=== PATIENT | female | born 1975 | race Caucasian/White ===

== ENCOUNTER → 2021-07-31 12:47 | Outpatient (CLI) | payer OTHER, SELFPAY ==
--- NOTE | ~2021-07-31 | CT_ITS ---
EXAMINATION: CT abdomen pelvis w con DATE: 07/31/2021 13:10 INDICATION: Right-sided abdominal pain TECHNIQUE: Computed tomography (CT) of the abdomen and pelvis was performed with 100 cc Omnipaque 350 intravenous contrast. The dose-length product was 459.65 mGy-cm. Automated exposure control and iter ative reconstruction technique were employed. COMPARISON: None. FINDINGS: There is dependent atelectasis. Heart size normal. No significant pleural or pericardial ef fusion. No significant vascular abnormality. No lymphadenopathy. Uterus is mildly enlarged and contai ns an IUD. There are multiple liver cysts, largest in the left hepatic lobe measuring 3.7 cm. The spl een, pancreas, adrenal glands and kidneys are unremarkable. Fat-containing umbilical hernia. Nonobstr uctive bowel gas pattern. Enlarged uterus. IMPRESSION: 1. No acute abdominal abnormality. No findings to account for patient's symptoms. Reviewed, dictated and finalized at location B. IMPRESSION: 1. No acute abdominal abnormality. No findings to account for patient's symptom s.
== END ==
PROVIDERS: PCP Physician Assistant; Visit Provider Physician Assistant
DX: R10.9 Unspecified abdominal pain (principal)
CPT/HCPCS: 74177; Q9967

== ENCOUNTER → 2021-08-17 14:16 | Outpatient (CLI) | payer OTHER, SELFPAY ==
--- NOTE | ~2021-08-17 | US_ITS ---
EXAMINATION: US pelvic complete w TV DATE: 08/17/2021 14:47 INDICATION: Hypertrophy of the uterus TECHNIQUE: Multiple transabdominal and endovaginal sonographic images of the pelvis were obtained. COMPARISON: None. FINDINGS: The uterus measures 9.9 x 4.5 x 5.5 cm. The endometrial complex measures 7 mm in thickness. Linear e chogenic and shadowing T-shaped IUD in expected position within the endometrial canal. The right ovar y measures 3.2 x 2.4 x 3.2 cm. And 1.5 cm anechoic cyst/follicle in the right ovary. The left ovary m easures 2.5 x 1.6 x 3.2 cm. Couple subcentimeter hypoechoic likely follicles at the left ovary. There is normal vascular flow in the ovaries. There is no free fluid in the pelvis. IMPRESSION: 1. IUD in expected position within the endometrial canal of the normal uterus. Reviewed, dictated and finalized at location B.
== END ==
PROVIDERS: PCP Physician Assistant; Visit Provider Student in an Organized Health Care Education/Training Program
DX: N85.2 Hypertrophy of uterus (principal); Z97.5 Presence of (intrauterine) contraceptive device
CPT/HCPCS: 76830; 76856

== ENCOUNTER 2023-03-15 07:00 | Outpatient (NON) | payer OTHER, SELFPAY | END 2023-03-15 07:01 | disposition home or self-care (01) | LOC: ANHLAB 03-16 14:22 | PROVIDERS: PCP Physician Assistant; Visit Provider Nurse Practitioner | DX: L30.8 Other specified dermatitis (principal); D48.5 Neoplasm of uncertain behavior of skin | CPT/HCPCS: 88305 ==

== ENCOUNTER 2024-08-17 14:10 | Outpatient (CLI) | payer OTHER, SELFPAY ==
--- NOTE | ~2024-08-17 | MM_ITS ---
EXAMINATION: MM screening rafia BI w alysia HISTORY: Screening TECHNIQUE: Craniocaudal and mediolateral oblique 3-D tomosynthesis images were obtained and synthetic 2-D images were generated. CAD analysis was submitted and interpreted. COMPARISON: Comparison to multiple prior studies sequentially, with oldest reviewed study dated 06/30. BREAST PARENCHYMAL COMPOSITION: Dense: The breasts are extremely dense, which lowers the sensitivity of mammography. FINDINGS: There is no evidence of suspicious mass, calcification, or architectural distortion to sugg est malignancy in either breast. There has been no suspicious interval change. IMPRESSION: 1. No mammographic evidence of malignancy. 2. Recommend routine screening mammography in one year. BI-RADS Category 1: Negative Reviewed, dictated and finalized at location A.
--- OUTSIDE RECORDS SUMMARY | 2024-08-17 14:15 | XMS_ITS | Referral Summary ---
Author Organization [facility] Address [address] [place] [id number] Care Team Providers Care Dialysis Biomed Technician Name Role Phone No, Physician Primary Care Provider [phone] Allergies No known active allergies Medications copper (PARAGARD T 380A INTRAUTERINE) by intrauterine route Active Active Problems Problem Noted Date Diagnosed Date Abnormal findings on diagnostic imaging of woody t 08/07/2018 Immunizations Immunization Administration Dates Next Due Influenza, Split 03/08/2010 Influenza, Trivalent, IM (MDV) 04/17/2012,2008 Social History Tobacco Use Types Packs/Day Years Used Date Smoking Tobacco: Light Smoker Smokeless Tobacco: Never Comments:socially Alcohol Use Standard Drinks/Week Comments Yes 0 (1 standard drink = 0.6 oz pur e alcohol) Comments No Sex and Gender Information Value Date Recorded Sex Assigned at Not on file 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 Gender Identity Female 01/11/2020 8:06 AM CDT Sexual Orientation Not on file Last Filed Vital Signs Vital Sign Reading Time Taken Comments Blood Pressure - - Pulse - - Temperature - - Respiratory Rate - - Oxygen Saturation - - Inhaled Oxygen Concentration - - Weight 66.2 kg (146 lb) 01/14/2020 8:10 AM CDT Height 162.6 cm (5' 4 ) 01/14/2020 8:10 AM CDT Body Mass Index 25.06 01/14/2020 8:10 AM CDT Plan of Treatment Not on file Insurance [facility] CHOICE PLUS [facility] CHOICE PLUS Care Teams Dialysis Biomed Technician Relationship Specialty Start Date End Date No, Physician PCP - General 07/20/18
--- OUTSIDE RECORDS SUMMARY | 2024-08-17 14:15 | XMS_ITS ---
Author Organization [facility] Address [address] [place] [address] Phone Care Team Providers Care Director Geophysical Laboratory Name Role Phone YUMIKO LIGHT, DAVY Jacob Primary Care Provider [phone] PIEDAD ROSA MD Unavailable [phone] Problems Includes: Active, inactive, and resolved Problems All Visits Onset Date Resolved Date Provider Condition S tatus Tobacco Use 04/02/2010 Unknown DAVY CALDERON MD Resolve d Last Documented On 12/02/2010 10:13AM ; [facility] Note: was Closed. Plan of Treatment Findings Encounter Date Declines contraception at th is time. vitamin RX sent. Pt. to call if + hpt. Agreeable to ct/ng for family planning today PREP MANAGER EXAM with [facility]IA [facility] 05/05/2012 Last Documented On 2 9:20AM ; [facility] Ordered Clinical summary pro vided to patient PREP MANAGER EXAM with CYNTHIA KUM[facility] 05/05/2012 Last Documented On 2 9:20AM ; [facility] Ordered follow-up visit 1 ye ar or as needed PREP MANAGER EXAM with CYNTHIA KUMAR [facility] 01/21/2010 Last Documented On 0 10:12AM ; [facility] Instructions to patient Instructions for patient : B reast Self Exam discussed Last Documented On 6 2:56PM ; [facility] Instructions for patient : B reast Self Exam discussed Last Documented On 4 9:31AM ; [facility] Instructions for patient : B reast Self Exam discussed Last Documented On 2 9:06AM ; [facility] Instructions for patient : B reast Self Exam discussed Last Documented On 1 3:21PM ; [facility] Instructions for patient : B reast Self Exam discussed Last Documented On 0 9:51AM ; [facility] Education and Decision Aids were provided during visit for: STD screening desired and or dered (cultures only) Last Documented On 6 3:18PM ; [facility] STD screening offered and de clined Last Documented On 4 9:31AM ; [facility] Patient Education: Daily jaime cium and vitamin D Last Documented On 2 9:06AM ; [facility] Patient Education: weight be aring exercise Last Documented On 2 9:06AM ; [facility] STD screening offered and de clined Last Documented On 1 3:21PM ; [facility] New OB form given to patient SAB precautions reviewed and pnv samples given. Advised H1N1 and seasonal flu vaccine Last Documented On 0 10:57AM ; [facility] Patient Education: Daily jaime cium and vitamin D Last Documented On 0 10:03AM ; [facility] Patient Education: weight be aring exercise Last Documented On 0 10:03AM ; [facility] Smoking cessation advised Last Documented On 0 10:03AM ; [facility] Assessments Includes: Assessments for all patient encounters Findings Encounter Date Contraceptive management 1 MONTH CHECK with DAVY CALDERON MD 09/18/2015 Last Documented On 6 9:07AM ; [facility] Contraceptive management: In sertion of IUD IUD INSERTION with DAVY CALDERON MD 08/19/2015 Last Documented On 6 9:46AM ; [facility] Routine pelvic exam ANNUAL WELL WOMEN EXAM with DAVY CALDERON MD 07/24/2015 Last Documented On 6 5:38PM ; [facility] Routine pelvic exam PREP MANAGER EXAM with DAVY CALDERON MD 11/06/2013 Last Documented On 4 9:40AM ; [facility] NORMAL FEMALE EXAM PREP MANAGER EXAM with CYNTHIA SINCLAIRP-MICHA 05/05/2012 Last Documented On 2 9:20AM ; [facility] Alopecia PROBLEM VISIT with DAVY CALDERON MD 04/10/2012 Last Documented On 2 1:00PM ; [facility] Bloating PROBLEM VISIT with DAVY CALDERON MD 04/10/2012 Last Documented On 2 1:00PM ; [facility] Contraceptive management PROBLEM VISIT with DAVY CALDERON MD 04/10/2012 Last Documented On 2 1:00PM ; [facility] Fatigue PROBLEM VISIT with DAVY CALDERON MD 04/10/2012 Last Documented On 2 1:00PM ; [facility] Contraceptive management PREP MANAGER EXAM with DAVY UNDERWOOD MD 02/02/2011 Last Documented On 1 3:34PM ; [facility] Routine pelvic exam PREP MANAGER EXAM with DAVY CALDERON MD 02/02/2011 Last Documented On 1 3:34PM ; [facility] Contraceptive management RECHECK with DAVY CALDERON MD 12/29/2010 Last Documented On 1 10:35AM ; [facility] Contraceptive management: In sertion of IUD POST VISIT with DAVY CALDERON MD 11/27/2010 Last Documented On 1 3:12PM ; [facility] Normal checkup (6 - 42 wk) RETURN OB EX AM with DAVY CALDERON MD 10/08/2010 Last Documented On 1 10:15AM ; [facility] Normal checkup (6 - 42 wk) RETURN OB EX AM with DAVY CALDERON MD 10/01/2010 Last Documented On 1 10:44AM ; [facility] Normal checkup (6 - 42 wk) [Pat ient Encounter] with DAVY CALDERON MD 09/25/2010 Last Documented On 1 3:43PM ; [facility] Normal checkup (6 - 42 wk) RETURN OB EX AM with DAVY CALDERON MD 09/24/2010 Last Documented On 1 9:26AM ; [facility] Normal checkup (6 - 42 wk) RETURN OB EX AM with DAVY CALDERON MD 09/17/2010 Last Documented On 1 9:38AM ; [facility] Normal checkup (6 - 42 wk) RETU RN OB EXAM with CYNTHIA Gavin [facility] 09/09/2010 Last Documented On 1 9:07AM ; [facility] Normal checkup (6 - 42 wk) RETURN OB EX AM with DAVY CALDERON MD 08/25/2010 Last Documented On 1 1:12PM ; [facility] Normal checkup (6 - 42 wk) RETU RN OB EXAM with CYNTHIA Gavin [facility]- 08/07/2010 Last Documented On 1 10:07AM ; [facility] Normal checkup (6 - 42 wk) RETURN OB EX AM with DAVY CALDERON MD 07/14/2010 Last Documented On 1 10:12AM ; [facility] Normal checkup (6 - 42 wk) RETU RN OB EXAM with CYNTHIA Romaine [facility]- 06/25/2010 Last Documented On 1 8:58AM ; [facility] Normal checkup (6 - 42 wk) RETURN OB EX AM with DAVY CALDERON MD 05/28/2010 Last Documented On 1 9:51AM ; [facility] Normal checkup (6 - 42 wk) RETU RN OB EXAM with CYNTHIA A [facility]- 04/30/2010 Last Documented On 0 9:56AM ; [facility] Normal checkup (6 - 42 wk) NEW OB EXAM with DAVY CALDERON MD 04/02/2010 Last Documented On 0 11:05AM ; [facility] Amenorrhea 8 weeks by lmp wi th edc of 10-16-2010 MISSED MENSES with CYNTHIA Gavin [facility]- 03/04/2010 Last Documented On 0 11:16AM ; [facility] Normal routine history and physical PREP MANAGER EXAM wit h CYNTHIA A [facility]- 01/21/2010 Last Documented On 0 10:12AM ; [facility] Routine pelvic exam PREP MANAGER EXAM with CYNTHIA A [facility]- 01/21/2010 Last Documented On 0 10:12AM ; [facility] Instructions Includes: Instructions for all patient encounters Instructions to patient Instructions for patient : B reast Self Exam discussed Last Documented On 6 2:56PM ; [facility] Instructions for patient : B reast Self Exam discussed Last Documented On 4 9:31AM ; [facility] Instructions for patient : B reast Self Exam discussed Last Documented On 2 9:06AM ; [facility] Instructions for patient : B reast Self Exam discussed Last Documented On 1 3:21PM ; [facility] Instructions for patient : B reast Self Exam discussed Last Documented On 0 9:51AM ; [facility] Education and Decision Aids were provided during visit for: STD screening desired and or dered (cultures only) Last Documented On 6 3:18PM ; [facility] STD screening offered and de clined Last Documented On 4 9:31AM ; [facility] Patient Education: Daily jaime cium and vitamin D Last Documented On 2 9:06AM ; [facility] Patient Education: weight be aring exercise Last Documented On 2 9:06AM ; [facility] STD screening offered and de clined Last Documented On 1 3:21PM ; [facility] New OB form given to patient SAB precautions reviewed and pnv samples given. Advised H1N1 and seasonal flu vaccine Last Documented On 0 10:57AM ; [facility] Patient Education: Daily jaime cium and vitamin D Last Documented On 0 10:03AM ; [facility] Patient Education: weight be aring exercise Last Documented On 0 10:03AM ; [facility] Smoking cessation advised Last Documented On 0 10:03AM ; [facility] Medical Equipment - Implanted Devices Includes: Current and historical Devices No Medical Equipment Recorded Medications Includes: Current and historical Medications Current Medications (continue as prescribed) Paragard Intrauterine Copper Intrauterine device 09/17 Provider: Diagnosis: Last Documented On 09/18/2015 8:43AM By NICHOLE POWELL PRINTED CIRCUIT BOARD ASSEMBLER ; [facility] Past Medications on file Triveen-Duo DHA 29-1-200 & 400 MG OR MISC 05/05/2012 - 09/02/2012 Provider: CYNTHIA ECHOLS Diagnosis: Last Documented On 2 9:20AM By CYNTHIA DWYER ; [facility] Mirena (52 MG) 20 MCG/24HR IU IUD 11/27/2010 - 012 Provider: Diagnosis: Inserted 11-27-10 Last Documented On 05/05/2012 9:09AM By REN CABRERA ; [facility] 19 OR TABS 01/21/2010 - 01/16/2011 Provider: CYNTHIA DWYER Diagnosis: Last Documented On 0 10:04AM By CYNTHIA DWYER ; [facility] Ortho Evra 150-35 MCG/24HR TD PTWK 06/06/2009 - 2009 Provider: Diagnosis: Last Documented On 01/21/2010 9:59AM By REN CABRERA ; [facility] Medications Administered Includes: Administered Medications in patient's chart No Administered Medications Recorded Results Includes: Results from 08/18/2023 through 08/17/2024 No Results Recorded For Specified Dates History of Present Illness History of Present Illness not supported for this document type No History of Present Illness Recorded Social History Description Last Updated Alcohol use: 2 drinks or less per day oc c 09/18/2015 Last Documented On 6 9:07AM ; [facility] Sexually active 09/18/2015 Last Documented On 6 9:07AM ; [facility] Smoking status : Current everyday smoker 09/18/2015 Last Documented On 6 9:07AM ; [facility] In monogamous relationship 07/24/2015 Last Documented On 6 5:38PM ; [facility] Cigarette smoking 1 pack a week 07/24/19 16 Last Documented On 6 5:38PM ; [facility] Social history unchanged 11/06/2013 Last Documented On 4 9:40AM ; [facility] Alcohol use rarely 05/05/2012 Last Documented On 2 9:20AM ; [facility] Not using drugs 05/05/2012 Last Documented On 2 9:20AM ; [facility] Sexually active with 1 partners in the l ast year 05/05/2012 Last Documented On 2 9:20AM ; [facility] Non-smoker 04/10/2012 Last Documented On 2 1:00PM ; [facility] Not sexually active 1 Last Documented On 1 3:12PM ; [facility] Tobacco use 04/02/2010 Last Documented On 0 11:05AM ; [facility] Daily cola consumption was one cans per day 06/06/2009 Last Documented On 0 8:47PM ; [facility] Alcohol 06/06/2009 Last Documented On 0 8:47PM ; [facility] Beer consumption 2 mo 06/06/2009 Last Documented On 0 8:47PM ; [facility] Caffeine use 06/06/2009 Last Documented On 0 8:47PM ; [facility] Currently 06/06/2009 Last Documented On 0 8:47PM ; [facility] Educational level: grade 06/06/2009 Last Documented On 0 8:47PM ; [facility] In grade 13-16 (college) 06/06/2009 Last Documented On 0 8:47PM ; [facility] Marital history 06/06/2009 Last Documented On 0 8:47PM ; [facility] Smoking only on weekends 06/06/2009 Last Documented On 0 8:47PM ; [facility] Procedures and Surgical History Surgical History Last Updated Surgical / procedural history myringotom y 08/19/2015 Last Documented On 6 9:46AM ; [facility] History of surgery 04/02/2010 Last Documented On 0 11:05AM ; [facility] Medical History Includes: Medical History in patient's chart Description Last Updated Contraception: paragard 09/18/2015 Last Documented On 6 9:07AM ; [facility] LMP: 09/10/2015 09/18/2015 Last Documented On 6 9:07AM ; [facility] Aborta 1 09/18/2015 Last Documented On 6 9:07AM ; [facility] 2 09/18/2015 Last Documented On 6 9:07AM ; [facility] Last pap smear date 07/24/2015 09/18/2015 Last Documented On 6 9:07AM ; [facility] Para 1 09/18/2015 Last Documented On 6 9:07AM ; [facility] History of Pap smear done 07/24/2015 04/0 09/2015 Last Documented On 6 9:46AM ; [facility] Result: normal 08/19/2015 Last Documented On 6 9:46AM ; [facility] No recent change in medical history 10/15 Last Documented On 4 9:40AM ; [facility] Vaginal delivery 05/05/2012 Last Documented On 2 9:20AM ; [facility] Baby thriving 11/27/2010 Last Documented On 1 3:12PM ; [facility] Infant is bottle-feeding 11/27/2010 Last Documented On 1 3:12PM ; [facility] No history of cervical dysplasia 010 Last Documented On 0 11:16AM ; [facility] No history of dysfunctional uterine blee ding 03/04/2010 Last Documented On 0 11:16AM ; [facility] No history of human papilloma virus infe ction 03/04/2010 Last Documented On 0 11:16AM ; [facility] No history of Polycystic Ovarian Syndrom e (PCOS) 03/04/2010 Last Documented On 0 11:16AM ; [facility] No history of urinary tract infection Last Documented On 0 11:16AM ; [facility] No history of vaginitis 03/04/2010 Last Documented On 0 11:16AM ; [facility] age 7 myrungotomy, age 21 ulcer 06/06/19 10 Last Documented On 0 8:47PM ; [facility] A breast self-exam was performed 010 Last Documented On 0 8:47PM ; [facility] A Pap smear was performed 06/06/2009 Last Documented On 0 8:47PM ; [facility] Other method: patch 06/06/2009 Last Documented On 0 8:47PM ; [facility] Taking OTC medications IBP PRN 0 Last Documented On 0 8:47PM ; [facility] Family History Includes: Family History in patient's chart Description Last Updated Family history of diabetes mellitus pt m aternal uncle 09/18/2015 Last Documented On 6 9:07AM ; [facility] Family history of malignant female breas t neoplasm pt paternal aunt 09/18/2015 Last Documented On 6 9:07AM ; [facility] Family history of malignant neoplasm of large intestine pt paternal uncle 09/18/2015 Last Documented On 6 9:07AM ; [facility] Family history of malignant neoplasm of the ovary pt paternal aunt 09/18/2015 Last Documented On 6 9:07AM ; [facility] Paternal history of malignant female sushma ast neoplasm paternal aunt 07/24/2015 Last Documented On 6 5:38PM ; [facility] Paternal history of malignant neoplasm o f the ovary aunt on paternal side 07/24/2015 Last Documented On 6 5:38PM ; [facility] Paternal uncle's history of malignant neoplasm of large intestine uncle on paternal side 07/24/2015 Last Documented On 6 5:38PM ; [facility] Family history unchanged 11/06/2013 Last Documented On 4 9:40AM ; [facility] Spouse name: kelly 05/05/2012 Last Documented On 2 9:20AM ; [facility] Family history of hypercholesterolemia d ad 05/05/2012 Last Documented On 2 9:20AM ; [facility] Family history of hypertension dad 05/05 Last Documented On 2 9:20AM ; [facility] No family history of heart disease 05/05 Last Documented On 2 9:20AM ; [facility] No family history of uterine cancer 04/16 Last Documented On 2 9:20AM ; [facility] Family history of Cancer pgm 06/06/2009 Last Documented On 0 8:47PM ; [facility] Family history of Diabetes mgf 0 Last Documented On 0 8:47PM ; [facility] Family medical history of high blood pre ssure pgm 06/06/2009 Last Documented On 0 8:47PM ; [facility] Family medical history of High Cholester ol dad 06/06/2009 Last Documented On 0 8:47PM ; [facility] Review of Systems Review of Systems not supported for this document type No Review of Systems Recorded Mental Status No Mental Status Recorded Functional Status No Functional Status Recorded Physical Exam Physical Exam not supported for this document type No Physical Exam Recorded Allergies Includes: Active, inactive, and resolved Allergies No Known Allergies Insurance Includes: Active Insurance Policies Plan Name Member ID Group # Subscriber Relationship Effect joni Dates 1 - [facility] [id number] JAYCOB MARY Se Clinical Notes Includes: Signed Clinical Notes starting from 06/04/2022 No Clinical Notes Recorded
--- OUTSIDE RECORDS SUMMARY | 2024-08-17 14:15 | XMS_ITS | Clinical Summary ---
Author Organization [facility] Address [address] [place] [address] Phone Care Team Providers Care Film Flat Inspector Name Role Phone YUMIKO LIGHT, DAVY Jacob Primary Care Provider [phone] PIEDAD ROSA MD Unavailable [phone] Reason for Visit and Chief Complaint [Patient Encounter] Problems Includes: Problems addressed during this encounter and other active Problems No Active Problems Plan of Treatment No Plan of Treatment Recorded Assessments Includes: Assessments from this encounter No Assessments Recorded Medical Equipment - Implanted Devices Includes: Current Devices No Medical Equipment Recorded Medications Includes: Medications discussed during this encounter and other current Medications Current Medications (continue as prescribed) Paragard Intrauterine Copper Intrauterine device 09/17 Provider: Diagnosis: Last Documented On 09/18/2015 8:43AM By NICHOLE POWELL CMA ; [facility] Medications Administered Includes: Administered Medications from this encounter No Administered Medications Recorded Results Includes: Results discussed during this encounter No Results Recorded For Specified Dates History of Present Illness Includes: History of Present Illness from this encounter No History of Present Illness Recorded Social History No Social History Recorded - Smoking Status Unknown Medical History Includes: Medical History addressed during this encounter No Medical History Recorded Family History Includes: Family History addressed during this encounter No Family History Recorded Review of Systems Includes: Review of Systems from this encounter No Review of Systems Recorded Mental Status Includes: Mental Status from this encounter No Mental Status Recorded Functional Status Includes: Functional Status from this encounter No Functional Status Recorded Physical Exam Includes: Physical Exam from this encounter No Physical Exam Recorded Allergies Includes: Active Allergies No Known Allergies Encounters Encounter Provider Location Date Check-In Time Check- Out Time Diagnosis [Patient Encounter] DAVY CALDERON MD [facility] MACHINE FEATHEREDGER AND REDUCER 5 1:20PM 11:59PM Insurance Includes: Active Insurance Policies Plan Name Member ID Group # Subscriber Relationship Effect joni Dates 1 - [facility] [id number] JAYCOB jaeger Clinical Notes Includes: Clinical Notes from this encounter No Clinical Notes Recorded
--- OUTSIDE RECORDS SUMMARY | 2024-08-17 14:15 | XMS_ITS | Clinical Summary ---
Author Organization [facility] Address [address] [place] [address] Phone Care Team Providers Care Neon Sign Worker Name Role Phone YUMIKO LIGHT, DAVY Jacob Primary Care Provider [phone] PIEDAD ROSA MD Unavailable [phone] Reason for Visit and Chief Complaint * PHONE CALL Problems Includes: Problems addressed during this encounter [...] 09/18/2015 8:43AM By NICHOLE POWELL CMA ; [facility] Past Medications on file Triveen-Duo DHA 29-1-200 & 400 MG OR MISC 05/05/2012 - 09/02/2012 Provider: CYNTHIA ECHOLS Diagnosis: Last Documented On 2 9:20AM By CYNTHIA KUMAR KINZA ; [facility] 19 OR TABS 01/21/2010 - 01/16/2011 Provider: CYNTHIA DWYER Diagnosis: Last Documented On 0 10:04AM By CYNTHIA KUMAR KINZA ; [facility] Medications Administered Includes: Administered Medications from this [...] Includes: Family History addressed during this encounter Description Last Updated Family history of diabetes m ellitus grandfather and uncles on maternal side 09/18/2015 Last Documented On 6 2:52PM ; [facility] Family history of malignant female breas t neoplasm Paternal aunt 09/18/2015 Last Documented On 6 2:52PM ; [facility] Family history of malignant neoplasm of the large intestine Paternal uncle 09/18/2015 Last Documented On 6 2:52PM ; [facility] Family history of malignant neoplasm of the ovary Paternal aunt 09/18/2015 Last Documented On 6 2:52PM ; [facility] Paternal history of malignant female sushma ast neoplasm paternal aunt 07/24/2015 Last Documented On 6 2:52PM ; [facility] Paternal history of malignant neoplasm o f the ovary aunt on paternal side 07/24/2015 Last Documented On 6 2:52PM ; [facility] Paternal uncle's history of malignant neoplasm of large intestine uncle on paternal side 07/24/2015 Last Documented On 6 2:52PM ; [facility] Family history unchanged 11/06/2013 Last Documented On 6 2:52PM ; [facility] Spouse name: kelly 05/05/2012 Last Documented On 6 2:52PM ; [facility] Family history of hypercholesterolemia d ad 05/05/2012 Last Documented On 6 2:52PM ; [facility] Family history of hypertension dad 05/05 Last Documented On 6 2:52PM ; [facility] No family history of heart disease 05/05 Last Documented On 6 2:52PM ; [facility] No family history of uterine cancer 04/16 Last Documented On 6 2:52PM ; [facility] Family history of Cancer pgm 06/06/2009 Last Documented On 6 2:52PM ; [facility] Family history of Diabetes mgf 0 Last Documented On 6 2:52PM ; [facility] Family medical history of high blood pre ssure pgm 06/06/2009 Last Documented On 6 2:52PM ; [facility] Family medical history of High Cholester ol dad 06/06/2009 Last Documented On 6 2:52PM ; [facility] Review of Systems Includes: Review of Systems [...] Encounters Encounter Provider Location Date Check-In Time Check-Out Time Diagnosis * PHONE CALL DAVY CALDERON MD [facility] EXTENSION SERVICE SPECIALIST 6 2:52PM 11:59PM Insurance Includes: Active Insurance Policies Plan Name Member ID Group # Subscriber Relationship Effect joni Dates 1 - [facility] [id number] JAYCOB MARY Se Clinical Notes Includes: Clinical Notes from this encounter No Clinical Notes Recorded
--- OUTSIDE RECORDS SUMMARY | 2024-08-17 14:15 | XMS_ITS | Clinical Summary ---
Author Organization [facility] Address [address] [place] [id number] Care Team Providers Care Marketing Strategy Manager Name Role Phone No, Physician Primary Care Provider [phone] Allergies No known active allergies Medications copper (PARAGARD T 380A INTRAUTERINE) by intrauterine route Active Active Problems Problem Noted Date Diagnosed Date Abnormal findings on diagnostic imaging of woody jane 08/07/2018 Immunizations Immunization Administration Dates Next Due Influenza, Split 03/08/2010 Influenza, Trivalent, IM (MDV) 04/17/2012,2008 Family History Medical History Relation Name Comments Other Father Alive and well; Colon cancer Father's Brother Breast cancer Father's Sister Arthritis Mother arthritis; Other Mother Alive and well; Melanoma Mother's Sister Breast cancer Paternal Grandmother Relation Name Status Comments Father Alive Father's Brother Father's Sister Mother Alive Mother's Sister Paternal Grandmother Social History Tobacco Use Types Packs/Day Years Used Date Smoking Tobacco: Light Smoker Smokeless Tobacco: Never Comments:socially Alcohol Use Standard Drinks/Week Comments Yes 0 (1 standard drink = 0.6 oz pur e alcohol) Comments No Sex and Gender Information Value Date Recorded Sex Assigned at Not on file Legal 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
--- OUTSIDE RECORDS SUMMARY | 2024-08-17 14:15 | XMS_ITS | Clinical Summary ---
Author Organization [facility] Address [address] [place] [address] Phone Care Team Providers Care Linen Attendant Name Role Phone YUMIKO LIGHT, DAVY Jacob Primary Care Provider [phone] PIEDAD ROSA MD Unavailable [phone] Reason for Visit and Chief Complaint visit for: IUD Insertion - The Chief Complaint is: paragard insertion Problems Includes: Problems addressed during this encounter and other active Problems No Active Problems Plan of Treatment Pending Tests Order Diagnosis Results Due Ordering P byronvider In office procedures - OB IUD Insertion Encounter for insertion of intrauterine contraceptive device 09/02/15 DAVY CALDERON MD Last Documented On 6 9:45AM ; [facility] Assessments Includes: Assessments from this encounter Findings - Contraceptive management: Insertion of IUD - Last Documented On 08/19/2015 9:46AM ; [facility] Medical Equipment - Implanted Devices Includes: Current Devices No Medical Equipment Recorded Medications Includes: Medications discussed during this encounter and other current Medications Current Medications (continue as prescribed) Paragard Intrauterine Copper Intrauterine device 09/17 Provider: Diagnosis: Last Documented On 09/18/2015 8:43AM By NICHOLE POWELL CMA ; [facility] Past Medications on file Triveen-Duo DHA 29-1-200 & 400 MG OR MISC 05/05/2012 - 09/02/2012 Provider: CYNTHIA AZARBC Diagnosis: Last Documented On 2 9:20AM By CYNTHIA KELLYBC ; [facility] 19 OR TABS 01/21/2010 - 01/16/2011 Provider: CYNTHIA DWYER Diagnosis: Last Documented On 0 10:04AM By [facility] ; [facility] Medications Administered Includes: Administered Medications from this encounter No Administered Medications Recorded Vital Signs Includes: Vital Signs from this encounter Vital Name 08/19/2015 09:10A 08/19/2015 09: 07A Blood Pressure Sitting (mmHg) 118/74 Height (in) 64 64 Weight (lb) 140 Body Mass Index (kg/m2) 24.0 Body Surface Area (m2) 1.7 Last Documented: On 08/19/2015 9:11AM ; [facility] On 08/19/2015 9:07AM ; [facility] Results Includes: Results discussed during this encounter No Results Recorded For Specified Dates History of Present Illness Includes: History of Present Illness from this encounter No History of Present Illness Recorded Social History No Social History Recorded - Smoking Status Unknown Procedures and Surgical History Includes: Procedures from this encounter Procedures Code Diagnosis Performing Provider Service L ocation Service Date insertion of intrauterine device (IUD) .Risks versus benefits discussed. Consent signed [id number] Last Documented On 6 9:30AM ; [facility] Sterile speculum inserted Last Documented On 6 9:30AM ; [facility] Cervix easily visualized , cervix swabbe d with Betadine Last Documented On 6 9:30AM ; [facility] Tenaculum applied to anterior cervix. Last Documented On 6 9:30AM ; [facility] Uterus sounded to 8 cm Last Documented On 6 9:45AM ; [facility] ParaGard telesales specialist introduced through cer vix to 6 cm Last Documented On 6 9:45AM ; [facility] ParaGard released and telesales specialist advanced to 7.5 cm Last Documented On 6 9:45AM ; [facility] Loaf Counter removed. Last Documented On 6 9:30AM ; [facility] Tenaculum removed and pressu re applied to tenaculum sites with cotton swabs until hemostatis obtained. along with silver nitrate Last Documented On 6 9:45AM ; [facility] IUD strings trimmed to 3-4 cm. Last Documented On 6 9:30AM ; [facility] Patient tolerated procedure well Last Documented On 6 9:30AM ; [facility] Instructed to use non-hormonal, back-up method of control x 1 month Last Documented On 6 9:30AM ; [facility] Patient verbalizes understanding Last Documented On 6 9:30AM ; [facility] RTO in month for IUD check. Last Documented On 6 9:30AM ; [facility] Encouraged to call office with any IUD c oncerns Last Documented On 6 9:30AM ; [facility] Clinical summary provided to patient Last Documented On 6 9:30AM ; [facility] Surgical History Last Updated Surgical / procedural history myringotom y 08/19/2015 Last Documented On 6 9:46AM ; [facility] Medical History Includes: Medical History addressed during this encounter Description Last Updated LMP: 08/17/2015 08/19/2015 Last Documented On 6 9:46AM ; [facility] Aborta 1 08/19/2015 Last Documented On 6 9:46AM ; [facility] 2 08/19/2015 Last Documented On 6 9:46AM ; [facility] History of Pap smear done 07/24/201509/2015 Last Documented On 6 9:46AM ; [facility] Para 1 08/19/2015 Last Documented On 6 9:46AM ; [facility] Result: normal 08/19/2015 Last Documented On 6 9:46AM ; [facility] Family History Includes: Family History addressed during this encounter Description Last Updated Family history of diabetes m ellitus grandfather and uncles on maternal side 09/18/2015 Last Documented On 6 9:07AM ; [facility] Family history of malignant female breas t neoplasm Paternal aunt 09/18/2015 Last Documented On 6 9:07AM ; [facility] Family history of malignant neoplasm of the large intestine Paternal uncle 09/18/2015 Last Documented On 6 9:07AM ; [facility] Family history of malignant neoplasm of the ovary Paternal aunt 09/18/2015 Last Documented On 6 9:07AM ; [facility] Paternal history of malignant female sushma ast neoplasm paternal aunt 07/24/2015 Last Documented On 6 9:07AM ; [facility] Paternal history of malignant neoplasm o f the ovary aunt on paternal side 07/24/2015 Last Documented On 6 9:07AM ; [facility] Paternal uncle's history of malignant neoplasm of large intestine uncle on paternal side 07/24/2015 Last Documented On 6 9:07AM ; [facility] Family history unchanged 11/06/2013 Last Documented On 6 9:07AM ; [facility] Spouse name: kelly 05/05/2012 Last Documented On 6 9:07AM ; [facility] Family history of hypercholesterolemia d ad 05/05/2012 Last Documented On 6 9:07AM ; [facility] Family history of hypertension dad 05/05 Last Documented On 6 9:07AM ; [facility] No family history of heart disease 05/05 Last Documented On 6 9:07AM ; [facility] No family history of uterine cancer 04/16 Last Documented On 6 9:07AM ; [facility] Family history of Cancer pgm 06/06/2009 Last Documented On 6 9:07AM ; [facility] Family history of Diabetes mgf 0 Last Documented On 6 9:07AM ; [facility] Family medical history of high blood pre ssure pgm 06/06/2009 Last Documented On 6 9:07AM ; [facility] Family medical history of High Cholester ol dad 06/06/2009 Last Documented On 6 9:07AM ; [facility] Review of Systems Includes: Review of Systems from this encounter No Review of Systems Recorded Mental Status Includes: Mental Status from this encounter No Mental Status Recorded Functional Status Includes: Functional Status from this encounter No Functional Status Recorded Physical Exam Includes: Physical Exam from this encounter Allergies Includes: Active Allergies No Known Allergies Encounters Encounter Provider Location Date Check-In Time Check-Out Time Diagnosis IUD INSERTION DAVY CALDERON MD [facility] ROUTER MACHINE OPERATOR 08/19/19 16 8:58AM 9:49AM Contraceptive Management: Insertion of Iud Insurance Includes: Active Insurance Policies Plan Name Member ID Group # Subscriber Relationship Effect joni Dates 1 - [facility] [id number] JAYCOB MARY Se lf Clinical Notes Includes: Clinical Notes from this encounter No Clinical Notes Recorded
--- OUTSIDE RECORDS SUMMARY | 2024-08-17 14:15 | XMS_ITS ---
Care Plan - [facility] Created on: August 17, 2024 JAYCOB MARY : 1975 Sex: Female Author Organization [facility] Address [address] [place] [address] Phone Care Team Providers Care Plow Holder Name Role Phone YUMIKO LIGHT, DAVY Jacob Primary Care Provider [phone] SHELLEY LIGHT, PIEDAD Rosales Unavailable [phone]
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
--- OUTSIDE RECORDS SUMMARY | 2024-08-17 14:15 | XMS_ITS | Clinical Summary ---
Author Organization [facility] Address [address] [place] [address] Phone Care Team Providers Care Valve Inspector Name Role Phone YUMIKO LIGHT, DAVY Jacob Primary Care Provider [phone] PIEDAD ROSA MD Unavailable [phone] Reason for Visit and Chief Complaint The Chief Complaint is: 1 month paragard check Problems Includes: Problems addressed during this encounter and other active Problems No Active Problems Plan of Treatment No Plan of Treatment Recorded Assessments Includes: Assessments from this encounter Findings - Contraceptive management - Last Documented On 09/18/2015 9:07AM ; [facility] Medical Equipment - Implanted Devices Includes: Current Devices No Medical Equipment Recorded Medications Includes: Medications discussed during this encounter and other current Medications Current Medications (continue as prescribed) Paragard Intrauterine Copper Intrauterine device 09/17 Provider: Diagnosis: Last Documented On 09/18/2015 8:43AM By NICHOLE POWELL CMA ; [facility] Past Medications on file Triveen-Duo DHA 29-1-200 & 400 MG OR MISC 05/05/2012 - 09/02/2012 Provider: CYNTHIA ESCOBAR NP-BC Diagnosis: Last Documented On 2 9:20AM By CYNTHIA KUMAR NICKI-BC ; [facility] 19 OR TABS 01/21/2010 - 01/16/2011 Provider: CYNTHIA ROWLEY-BC Diagnosis: Last Documented On 0 10:04AM By CYNTHIA KUMAR NICKI-BC ; [facility] Medications Administered Includes: Administered Medications from this encounter No Administered Medications Recorded Vital Signs Includes: Vital Signs from this encounter Vital Name 09/18/2015 08:44A 09/18/2015 08: 38A Blood Pressure Sitting (mmHg) 118/72 Height (in) 64 64 Weight (lb) 133 Body Mass Index (kg/m2) 22.8 Body Surface Area (m2) 1.6 Last Documented: On 09/18/2015 8:44AM ; [facility] On 09/18/2015 8:38AM ; [facility] Results Includes: Results discussed during this encounter No Results Recorded For Specified Dates History of Present Illness Includes: History of Present Illness from this encounter RICH MARY is a 39 year old female. - No unusual bleeding last period was a little heavier and longer than normal but total of 6 days. - No pelvic pain. - No vaginal discharge. Social History Description Last Updated Alcohol use: 2 drinks or less per day oc c 09/18/2015 Last Documented On 6 9:07AM ; [facility] Sexually active 09/18/2015 Last Documented On 6 9:07AM ; [facility] Smoking status : Current everyday smoker 09/18/2015 Last Documented On 6 9:07AM ; [facility] Procedures and Surgical History Includes: Procedures from this encounter Procedures Code Diagnosis Performing Provider Service L ocation Service Date follow-up visit for annual exam Last Documented On 6 8:57AM ; [facility] Patient reassured IUD in cor rect position and she may rely on it for contraception Last Documented On 6 8:57AM ; [facility] Clinical summary provided to patient Last Documented On 6 8:57AM ; [facility] Surgical History Last Updated Surgical / procedural history myringotom y 08/19/2015 Last Documented On 6 8:38AM ; [facility] History of surgery myringotomy 0 Last Documented On 6 8:38AM ; [facility] Medical History Includes: Medical History addressed during this encounter Description Last Updated Contraception: paragard 09/18/2015 Last Documented On 6 9:07AM ; [facility] LMP: 09/10/2015 09/18/2015 Last Documented On 6 9:07AM ; [facility] Aborta 1 09/18/2015 Last Documented On 6 9:07AM ; [facility] 2 09/18/2015 Last Documented On 6 9:07AM ; [facility] Last pap smear date 07/24/2015 09/18/2015 Last Documented On 6 9:07AM ; [facility] Para 1 09/18/2015 Last Documented On 6 9:07AM ; [facility] Family History Includes: Family History addressed during this encounter Description Last Updated Family history of diabetes mellitus pt m aternal uncle 09/18/2015 Last Documented On 6 9:07AM ; [facility] Family history of malignant female breas t neoplasm pt paternal aunt 09/18/2015 Last Documented On 6 9:07AM ; [facility] Family history of malignant neoplasm of large intestine pt paternal uncle 09/18/2015 Last Documented On 6 9:07AM ; [facility] Family history of malignant neoplasm of the ovary pt paternal aunt 09/18/2015 Last Documented On 6 9:07AM ; [facility] Review of Systems Includes: Review of [...] Location Date Check-In Time Check-Out Time Diagnosis 1 MONTH CHECK DAVY CALDERON MD [facility] LEASE ANALYST 09/18/19 16 8:36AM 9:06AM Contraceptive Management Insurance Includes: Active Insurance Policies Plan Name Member ID Group # Subscriber Relationship Effect joni Dates 1 - [facility] [id number] JAYCOB MARY [facility] Clinical Notes Includes: Clinical Notes from this encounter No Clinical Notes Recorded
== END 2024-08-17 14:11 | disposition home or self-care (01) ==
LOC: CHSIMG 14:14
PROVIDERS: PCP Surgery Plastic and Reconstructive Surgery; Visit Provider Surgery Plastic and Reconstructive Surgery
DX: Z12.31 Encounter for screening mammogram for malignant neoplasm of breast (principal)
CPT/HCPCS: 77063; 77067

== ENCOUNTER 2024-08-22 11:55 | Emergency (ER) | payer OTHER, SELFPAY ==
--- NOTE | ~2024-08-22 | XR_ITS ---
EXAMINATION: XR abdomen/kub 1V DATE: 08/22/2024 12:33 INDICATION: Right-sided abdominal and mid back pain. TECHNIQUE: A supine view of the abdomen on 2 radiographs was obtained. COMPARISON: CT dated 07/31/2021 FINDINGS: Moderate the large amount of stool in the ascending and transverse colon. No dilated loops of gas-sara led bowel to suggest obstruction. 6 mm calcification projecting over the right upper quadrant which c ould represent a gallstone or right renal stone. No other suspicious calcifications in the abdomen or pelvis. T-shaped IUD projecting over the central pelvis. Lung bases are clear. Heart size normal. Mi ld lumbar dextrocurvature. IMPRESSION: 1. 6 mm calcific density projecting over the right upper quadrant potentially a gallstone or renal st one. 2. Normal bowel gas pattern with moderate to large amount of proximal colonic stool which could be se en with constipation. Reviewed, dictated and finalized at location B. IMPRESSION: 1. 6 mm calcific density projecting over the right upper quadrant potentially a gallstone or renal stone. 2. Normal bowel gas pattern with moderate to large amount of proximal colonic s tool which could be seen with constipation.
[2024-08-22 12:08] VITALS: BP 119/77; PULSE 115; RESP 18; TEMP 36.6; O2SAT 100
--- NOTE | 2024-08-22 12:12 | ED_ITS ---
HPI - Abdominal Pain General Chief Complaint: Abdominal Pain Stated Complaint: right side pain Time Seen by Provider: 08/22/24 12:12 Source: patient Mode of arrival: ambulatory Limitations: no limitations History of Present Illness HPI narrative: 48 yo F presents with pain to her R side for about 3 wks. Pain is intermittent, at times worse. Today pain radiating to R mid/upper back. Having normal BMs. No urinary symptoms. Reports mild nausea and fatigue today. No vomiting. Nothing makes pain better or worse. Has been taking tirzepatide since december. Was concerned causing gallbladder issues. All systems reviewed and negative except as noted above. Related Data Home Medications ?Medication ?Instructions ?Recorded ?Confirmed ?Last Taken ?Type copper 380 square mm intrauterine 1 device intrauterine ONCE 02/06/21 02/06/21 Unknown History device (ParaGard T 380A) Allergies Allergy/AdvReac Type Severity Reaction Status Date / Time No Known Allergies Allergy Verified 08/22/24 12:11 Review of Systems Review of Systems: CONSTITUTIONAL: Denies fever, chills, or sweats. EYES: Denies visual changes, redness, or discharge. ENT: Denies rhinorrhea, congestion, sore throat, or otalgia. CARDIOVASCULAR: Denies chest pain, palpitations, or edema. RESPIRATORY: Denies cough or dyspnea. GASTROINTESTINAL: Reports right-sided abdominal pain radiating to right mid back with nausea. Denies vomiting, or diarrhea. GENITOURINARY: Denies dysuria or hematuria. SKIN: Denies rash or itching. MUSCULOSKELETAL: Denies back pain, joint pain, or myalgia. NEUROLOGIC: Denies headache, numbness, or weakness. PSYCHIATRIC: Denies anxiety or depression. All other systems reviewed are negative, except as documented in HPI. [facility] Past Medical History Medical History History of 1 History of vaginal delivery x 1 Surgical History Surgical History No significant past surgical history Family History Family History Father Hypertension Cerebrovascular accident Social History Social History Smoking status: Current every day smoker Tobacco type: cigarettes Alcohol intake: current Substance use: never Comments At time of signature, agree with nursing past medical, surgical, social and family history. There is no relevant family history pertinent to the presenting complaint. Exam Narrative: GENERAL: This is a well-nourished, well-developed patient, in no apparent distress. HEAD: normocephalic, atraumatic. EYES: PERRL. Sclera clear/white. Vision is grossly intact. EARS: External ears normal NOSE: External nose normal NECK: Neck supple, non-tender without lymphadenopathy, masses or thyromegaly. CARDIOVASCULAR: Regular rate and rhythm without murmurs, gallops, or rubs. RESPIRATORY: Clear to auscultation. Breath sounds equal bilaterally. No wheezes, rales, or rhonchi. GASTROINTESTINAL: Abdomen soft, non-tender, nondistended. Bowel sounds are active. No hepato-splenomegaly, or palpable masses. No guarding. SKIN: warm, Dry, intact with no suspicious lesions or rash, good texture and turgor. NEURO: awake, alert, and oriented to person, place and time. There were no obvious focal neurologic abnormalities. EXTREMITIES: No joint tenderness, effusion, or edema noted. No calf tenderness. Negative Homans sign bilaterally. BACK: Nontender without deformity. No CVA tenderness. Course Course Level of Care: Express Care Visit Vital Signs Vital signs: Vital Signs Temperature 36.6 C 08/22/24 12:08 Pulse Rate 115 H 08/22/24 12:08 Respiratory Rate 18 08/22/24 12:08 Blood Pressure 119/77 08/22/24 12:08 Pulse Oximetry 100 08/22/24 12:08 Oxygen Delivery Room Air 08/22/24 12:08 Temperature 36.6 C 08/22/24 12:08 Pulse Rate 115 H 08/22/24 12:08 Respiratory Rate 18 08/22/24 12:08 Blood Pressure 119/77 08/22/24 12:08 Pulse Oximetry 100 08/22/24 12:08 Oxygen Delivery Room Air 08/22/24 12:08 reviewed MDM - Abdominal Pain MDM Narrative Medical decision making narrative: KUB showing moderate to large stool. Recommend miralax and stool softener. density to RUQ concerning for gallstone or renal stone. No ABD tenderness, no CVA tenderness. Trace blood to urinalysis. offered to transfer pt to ER for CT scan ABD or recommmend follow up with PCP for outpatient CT scan. pt in no distress at this time. would prefer to follow up with PCP at this time Will go to ER for any worsening of symptoms. urinalysis 2+ketones. pt did mention not drinking a lot of water. Recommend she increase water intake, will also help with constipation. Please be advised this is a medical document. It is intended for lrvi-rx-siqi communication. It is written in medical language and may contain unfamiliar abbreviations or verbiage. Medical documents are intended to carry relevant information, facts as evident, and the clinical opinion of the practitioner at the time of the encounter. This report may have been done utilizing a voice recognition system. Attempts have been made to correct errors. However, there may be uncorrected grammatical, spelling, and recognition errors present. The file time of this note does not necessarily represent the time of service. Lab Data Labs: Lab Results 08/22/24 Range/Units 13:11 POC Urine Color Yellow POC Urine Clarity Clear POC Urine pH 5.5 POC Ur Specif [place] 1.015 POC Urine Protein Negative (Negative) POC Ur Glucose (UA) Negative (Negative) POC Urine Ketones 2+ (Negative) POC Urine Blood Trace (Negative) POC Urine Nitrite Negative (Negative) POC Urine Bilirubin Negative (Negative) POC Urine Urobilinogen 0.2 POC U Leukocyte Esteras Negative (Negative) Imaging Data Radiologist's impression: ITS Impressions Abdomen X-Ray 08/22/24 12:47 IMPRESSION: 1. 6 mm calcific density projecting over the right upper quadrant potentially a gallstone or renal stone. 2. Normal bowel gas pattern with moderate to large amount of proximal colonic stool which could be seen with constipation. Discharge Plan Discharge Clinical Impression: Constipation Patient Disposition: Home Condition: Stable Instructions: Constipation (ED) Additional Instructions: The x-ray of your abdomen shows moderate to large amount of stool. There is a calcified density to your right upper quadrant concerning for a gallstone or kidney stone. Less likely a kidney stone based off your symptoms. Follow up with a primary care physician for an outpatient CT scan. If you have severe abdominal pain or vomiting go to the ER. To treat constipation drink 1 capful of Miralax once a day for the next 2 to 3 days. Take over the counter stool softeners as directed on packaging. Drink at least 64 ounce of water a day. Patient Language: Citizen Of [place] Prescriptions: No Action ParaGard T 380A 380 square mm intrauterine device 1 device intrauterine ONCE Rx Instructions: as a single dose Follow-up/Referrals: PHYSICIAN,C 13 CATAPULT OPERATOR [Primary Care Provider] - Derrek Moffett MD [Physician] - (establish care with a primary care physician) Time of Disposition: 13:21
[2024-08-22 13:13] LABS: EDUAAPPEAR Clear; EDUABILI Negative (Negative); EDUABLOOD Trace (Negative); EDUACOLOR1 Yellow; EDUAGLUCOSE Negative (Negative); EDUAKETONE 2+ (Negative); EDUALEUKO Negative (Negative); EDUANITRATE Negative (Negative); EDUAPH 5.5; EDUAPROTEIN Negative (Negative); EDUASPGRAVITY 1.015; EDUAUROBILI 0.2
--- OUTSIDE RECORDS SUMMARY | 2024-08-22 13:26 | XMS_ITS | Clinical Summary ---
Author Organization [facility] Address [address] [place] [address] Phone Care Team Providers Care Laundry Operator Wash Room Name Role Phone YUMIKO LIGHT, DAVY Jacob Primary Care Provider [phone] PIEDAD ROSA MD Unavailable [phone] Reason for Visit and Chief [...] 09/18/2015 8:43AM By NICHOLE POWELL CMA ; [facility] Past Medications on file Triveen-Duo DHA 29-1-200 & 400 MG OR MISC 05/05/2012 - 09/02/2012 Provider: CYNTHIA ECHOLS Diagnosis: Last Documented On 2 9:20AM By CYNTHIA KUMAR KINZA ; [facility] 19 OR TABS 01/21/2010 - 01/16/2011 Provider: CYNTHIA DWYER Diagnosis: Last Documented On 0 10:04AM By CYNTHIA KUMAR KINZA ; [facility] Medications Administered Includes: Administered [...] 09/18/2015 Last Documented On 6 2:52PM ; [facility] Family history of malignant female breas t neoplasm Paternal aunt 09/18/2015 Last Documented On 6 2:52PM ; [facility] Family history of malignant neoplasm of the large intestine Paternal uncle 09/18/2015 Last Documented On 6 2:52PM ; [facility] Family history of malignant neoplasm of the ovary Paternal aunt 09/18/2015 Last Documented On 6 2:52PM ; [facility] Paternal history of malignant female sushma ast neoplasm paternal aunt 07/24/2015 Last Documented On 6 2:52PM ; [facility] Paternal history of malignant neoplasm o f the ovary aunt on paternal side 07/24/2015 Last Documented On 6 2:52PM ; [facility] Paternal uncle's history of malignant neoplasm of large intestine uncle on paternal side 07/24/2015 Last Documented On 6 2:52PM ; [facility] Family history unchanged 11/06/2013 Last Documented On 6 2:52PM ; [facility] Spouse name: kelly 05/05/2012 Last Documented On 6 2:52PM ; [facility] Family history of hypercholesterolemia d ad 05/05/2012 Last Documented On 6 2:52PM ; [facility] Family history of hypertension dad 05/05 Last Documented On 6 2:52PM ; [facility] No family history of heart disease 05/05 Last Documented On 6 2:52PM ; [facility] No family history of uterine cancer 04/16 Last Documented On 6 2:52PM ; [facility] Family history of Cancer pgm 06/06/2009 Last Documented On 6 2:52PM ; [facility] Family history of Diabetes mgf 0 Last Documented On 6 2:52PM ; [facility] Family medical history of high blood pre ssure pgm 06/06/2009 Last Documented On 6 2:52PM ; [facility] Family medical history of High Cholester ol dad 06/06/2009 Last Documented On 6 2:52PM ; [facility] Review of Systems Includes: Review of Systems [...] Diagnosis * PHONE CALL DAVY CALDERON MD [facility] LEARNING SUPPORT TEACHER 6 2:52PM 11:59PM Insurance Includes: Active Insurance Policies Plan Name Member ID Group # Subscriber Relationship Effect joni Dates 1 - [facility] [id number] JAYCOB MARY Se Clinical Notes Includes: Clinical Notes from this encounter No Clinical Notes Recorded
--- OUTSIDE RECORDS SUMMARY | 2024-08-22 13:27 | XMS_ITS | Clinical Summary ---
Author Organization [facility] Address [address] [place] [address] Phone Care Team Providers Care Clinical Haematologist Name Role Phone YUMIKO LIGTH, DAVY Jacob Primary Care Provider [phone] PIEDAD ROSA MD Unavailable [phone] Reason for Visit and Chief [...] 09/18/2015 8:43AM By NICHOLE POWELL CMA ; [facility] Medications Administered Includes: Administered Medications from [...] Time Diagnosis [Patient Encounter] DAVY CALDERON MD [facility] ICE GUARD TESTER 5 1:20PM 11:59PM Insurance Includes: Active Insurance Policies Plan Name Member ID Group # Subscriber Relationship Effect joni Dates 1 - [facility] [id number] JAYCOB jaeger Clinical Notes Includes: Clinical Notes from this encounter No Clinical Notes Recorded
--- OUTSIDE RECORDS SUMMARY | 2024-08-22 13:27 | XMS_ITS | Clinical Summary ---
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
--- OUTSIDE RECORDS SUMMARY | 2024-08-22 13:27 | XMS_ITS ---
Author Organization [facility] Address [address] [place] [address] Phone Care Team Providers Care Client Services Administrator Name Role Phone YUMIKO LIGHT, DAVY Jacob Primary Care Provider [phone] PIEDAD ROSA MD Unavailable [phone] Problems Includes: Active, inactive, and resolved Problems All Visits Onset Date Resolved Date Provider Condition S tatus Tobacco Use 04/02/2010 Unknown DAVY CALDERON MD Resolve d Last Documented On 12/02/2010 10:13AM ; [facility] Note: was Closed. Plan of Treatment Findings Encounter Date Declines contraception at th is time. vitamin RX sent. Pt. to call if + hpt. Agreeable to ct/ng for family planning today THERMAL CUTTER HAND EXAM with CYNTHIA KUMAR [facility] 05/05/2012 Last Documented On 2 9:20AM ; [facility] Ordered Clinical summary pro vided to patient THERMAL CUTTER HAND EXAM with CYNTHIA KUMAR [facility] 05/05/2012 Last Documented On 2 9:20AM ; [facility] Ordered follow-up visit 1 ye ar or as needed THERMAL CUTTER HAND EXAM with CYNTHIA KUMAR [facility] 01/21/2010 Last Documented On 0 10:12AM ; [facility] Instructions to patient Instructions for patient : B reast Self Exam discussed Last Documented On 6 2:56PM ; [facility] Instructions for patient : B reast Self Exam discussed Last Documented On 4 9:31AM ; [facility] Instructions for patient : B reast Self Exam discussed Last Documented On 2 9:06AM ; [facility] Instructions for patient : B reast Self Exam discussed Last Documented On 1 3:21PM ; [facility] Instructions for patient : B reast Self Exam discussed Last Documented On 0 9:51AM ; [facility] Education and Decision Aids were provided during visit for: STD screening desired and or dered (cultures only) Last Documented On 6 3:18PM ; [facility] STD screening offered and de clined Last Documented On 4 9:31AM ; [facility] Patient Education: Daily jaime cium and vitamin D Last Documented On 2 9:06AM ; [facility] Patient Education: weight be aring exercise Last Documented On 2 9:06AM ; [facility] STD screening offered and de clined Last Documented On 1 3:21PM ; [facility] New OB form given to patient SAB precautions reviewed and pnv samples given. Advised H1N1 and seasonal flu vaccine Last Documented On 0 10:57AM ; [facility] Patient Education: Daily jaime cium and vitamin D Last Documented On 0 10:03AM ; [facility] Patient Education: weight be aring exercise Last Documented On 0 10:03AM ; [facility] Smoking cessation advised Last Documented On 0 10:03AM ; [facility] Assessments Includes: Assessments for all patient encounters Findings Encounter Date Contraceptive management 1 MONTH CHECK with DAVY CALDERON MD 09/18/2015 Last Documented On 6 9:07AM ; [facility] Contraceptive management: In sertion of IUD IUD INSERTION with DAVY CALDERON MD 08/19/2015 Last Documented On 6 9:46AM ; [facility] Routine pelvic exam ANNUAL WELL WOMEN EXAM with DAVY CALDERON MD 07/24/2015 Last Documented On 6 5:38PM ; [facility] Routine pelvic exam THERMAL CUTTER HAND EXAM with DAVY CALDERON MD 11/06/2013 Last Documented On 4 9:40AM ; [facility] NORMAL FEMALE EXAM THERMAL CUTTER HAND EXAM with CYNTHIA SINCLAIRP-MICHA 05/05/2012 Last Documented On 2 9:20AM ; [facility] Alopecia PROBLEM VISIT with DAVY CALDERON MD 04/10/2012 Last Documented On 2 1:00PM ; [facility] Bloating PROBLEM VISIT with DAVY CALDERON MD 04/10/2012 Last Documented On 2 1:00PM ; [facility] Contraceptive management PROBLEM VISIT with DAVY CALDERON MD 04/10/2012 Last Documented On 2 1:00PM ; [facility] Fatigue PROBLEM VISIT with DAVY CALDERON MD 04/10/2012 Last Documented On 2 1:00PM ; [facility] Contraceptive management THERMAL CUTTER HAND EXAM with DAVY UNDERWOOD MD 02/02/2011 Last Documented On 1 3:34PM ; [facility] Routine pelvic exam THERMAL CUTTER HAND EXAM with DAVY CALDERON MD 02/02/2011 Last Documented On 1 3:34PM ; [facility] Contraceptive management RECHECK with DAVY CALDERON MD 12/29/2010 Last Documented On 1 10:35AM ; [facility] Contraceptive management: In sertion of IUD POST VISIT with DAVY CALDERON MD 11/27/2010 Last Documented On 1 3:12PM ; [facility] Normal checkup (6 - 42 wk) RETURN OB EX AM with DAVY CALDERON MD 10/08/2010 Last Documented On 1 10:15AM ; [facility] Normal checkup (6 - 42 wk) RETURN OB EX AM with DAVY CALDERON MD 10/01/2010 Last Documented On 1 10:44AM ; [facility] Normal checkup (6 - 42 wk) [Pat ient Encounter] with DAVY CALDERON MD 09/25/2010 Last Documented On 1 3:43PM ; [facility] Normal checkup (6 - 42 wk) RETURN OB EX AM with DAVY CALDERON MD 09/24/2010 Last Documented On 1 9:26AM ; [facility] Normal checkup (6 - 42 wk) RETURN OB EX AM with DAVY CALDERON MD 09/17/2010 Last Documented On 1 9:38AM ; [facility] Normal checkup (6 - 42 wk) RETU RN OB EXAM with CYNTHIA Gavin [facility]- 09/09/2010 Last Documented On 1 9:07AM ; [facility] Normal checkup (6 - 42 wk) RETURN OB EX AM with DAVY CALDERON MD 08/25/2010 Last Documented On 1 1:12PM ; [facility] Normal checkup (6 - 42 wk) RETU RN OB EXAM with CYNTHIA Gavin [facility]- 08/07/2010 Last Documented On 1 10:07AM ; [facility] Normal checkup (6 - 42 wk) RETURN OB EX AM with DAVY CALDERON MD 07/14/2010 Last Documented On 1 10:12AM ; [facility] Normal checkup (6 - 42 wk) RETU RN OB EXAM with CYNTHIA Romaine [facility]- 06/25/2010 Last Documented On 1 8:58AM ; [facility] Normal checkup (6 - 42 wk) RETURN OB EX AM with DAVY CALDERON MD 05/28/2010 Last Documented On 1 9:51AM ; [facility] Normal checkup (6 - 42 wk) RETU RN OB EXAM with CYNTHIA A [facility]- 04/30/2010 Last Documented On 0 9:56AM ; [facility] Normal checkup (6 - 42 wk) NEW OB EXAM with DAVY CALDERON MD 04/02/2010 Last Documented On 0 11:05AM ; [facility] Amenorrhea 8 weeks by lmp wi th edc of 10-16-2010 MISSED MENSES with CYNTHIA Gavin [facility]- 03/04/2010 Last Documented On 0 11:16AM ; [facility] Normal routine history and physical THERMAL CUTTER HAND EXAM wit h CYNTHIA A [facility]- 01/21/2010 Last Documented On 0 10:12AM ; [facility] Routine pelvic exam THERMAL CUTTER HAND EXAM with CYNTHIA A [facility]- 01/21/2010 Last Documented On 0 10:12AM ; [facility] Instructions Includes: Instructions for all patient encounters Instructions to patient Instructions for patient : B reast Self Exam discussed Last Documented On 6 2:56PM ; [facility] Instructions for patient : B reast Self Exam discussed Last Documented On 4 9:31AM ; [facility] Instructions for patient : B reast Self Exam discussed Last Documented On 2 9:06AM ; [facility] Instructions for patient : B reast Self Exam discussed Last Documented On 1 3:21PM ; [facility] Instructions for patient : B reast Self Exam discussed Last Documented On 0 9:51AM ; [facility] Education and Decision Aids were provided during visit for: STD screening desired and or dered (cultures only) Last Documented On 6 3:18PM ; [facility] STD screening offered and de clined Last Documented On 4 9:31AM ; [facility] Patient Education: Daily jaime cium and vitamin D Last Documented On 2 9:06AM ; [facility] Patient Education: weight be aring exercise Last Documented On 2 9:06AM ; [facility] STD screening offered and de clined Last Documented On 1 3:21PM ; [facility] New OB form given to patient SAB precautions reviewed and pnv samples given. Advised H1N1 and seasonal flu vaccine Last Documented On 0 10:57AM ; [facility] Patient Education: Daily jaime cium and vitamin D Last Documented On 0 10:03AM ; [facility] Patient Education: weight be aring exercise Last Documented On 0 10:03AM ; [facility] Smoking cessation advised Last Documented On 0 10:03AM ; [facility] Medical Equipment - Implanted Devices Includes: Current and historical Devices No Medical Equipment Recorded Medications Includes: Current and historical Medications Current Medications (continue as prescribed) Paragard Intrauterine Copper Intrauterine device 09/17 Provider: Diagnosis: Last Documented On 09/18/2015 8:43AM By NICHOLE POWELL SPECIAL NEEDS NANNY ; [facility] Past Medications on file Triveen-Duo DHA 29-1-200 & 400 MG OR MISC 05/05/2012 - 09/02/2012 Provider: CYNTHIA ECHOLS Diagnosis: Last Documented On 2 9:20AM By CYNTHIA DWYER ; [facility] Mirena (52 MG) 20 MCG/24HR IU IUD 11/27/2010 - 012 Provider: Diagnosis: Inserted 11-27-10 Last Documented On 05/05/2012 9:09AM By REN CABRERA ; [facility] 19 OR TABS 01/21/2010 - 01/16/2011 Provider: CYNTHIA DWYER Diagnosis: Last Documented On 0 10:04AM By CYNTHIA DWYER ; [facility] Ortho Evra 150-35 MCG/24HR TD PTWK 06/06/2009 - 2009 Provider: Diagnosis: Last Documented On 01/21/2010 9:59AM By REN CABRERA ; [facility] Medications Administered Includes: Administered Medications in patient's chart No Administered Medications Recorded Results Includes: Results from 08/23/2023 through 08/22/2024 No Results Recorded For Specified Dates History of Present Illness History of Present Illness not supported for this document type No History of Present Illness Recorded Social History Description Last Updated Alcohol use: 2 drinks or less per day oc c 09/18/2015 Last Documented On 6 9:07AM ; [facility] Sexually active 09/18/2015 Last Documented On 6 9:07AM ; [facility] Smoking status : Current everyday smoker 09/18/2015 Last Documented On 6 9:07AM ; [facility] In monogamous relationship 07/24/2015 Last Documented On 6 5:38PM ; [facility] Cigarette smoking 1 pack a week 07/24/19 16 Last Documented On 6 5:38PM ; [facility] Social history unchanged 11/06/2013 Last Documented On 4 9:40AM ; [facility] Alcohol use rarely 05/05/2012 Last Documented On 2 9:20AM ; [facility] Not using drugs 05/05/2012 Last Documented On 2 9:20AM ; [facility] Sexually active with 1 partners in the l ast year 05/05/2012 Last Documented On 2 9:20AM ; [facility] Non-smoker 04/10/2012 Last Documented On 2 1:00PM ; [facility] Not sexually active 1 Last Documented On 1 3:12PM ; [facility] Tobacco use 04/02/2010 Last Documented On 0 11:05AM ; [facility] Daily cola consumption was one cans per day 06/06/2009 Last Documented On 0 8:47PM ; [facility] Alcohol 06/06/2009 Last Documented On 0 8:47PM ; [facility] Beer consumption 2 mo 06/06/2009 Last Documented On 0 8:47PM ; [facility] Caffeine use 06/06/2009 Last Documented On 0 8:47PM ; [facility] Currently 06/06/2009 Last Documented On 0 8:47PM ; [facility] Educational level: grade 06/06/2009 Last Documented On 0 8:47PM ; [facility] In grade 13-16 (college) 06/06/2009 Last Documented On 0 8:47PM ; [facility] Marital history 06/06/2009 Last Documented On 0 8:47PM ; [facility] Smoking only on weekends 06/06/2009 Last Documented On 0 8:47PM ; [facility] Procedures and Surgical History Surgical History Last Updated Surgical / procedural history myringotom y 08/19/2015 Last Documented On 6 9:46AM ; [facility] History of surgery 04/02/2010 Last Documented On 0 11:05AM ; [facility] Medical History Includes: Medical History in patient's chart Description Last Updated Contraception: paragard 09/18/2015 Last Documented On 6 9:07AM ; [facility] LMP: 09/10/2015 09/18/2015 Last Documented On 6 9:07AM ; [facility] Aborta 1 09/18/2015 Last Documented On 6 9:07AM ; [facility] 2 09/18/2015 Last Documented On 6 9:07AM ; [facility] Last pap smear date 07/24/2015 09/18/2015 Last Documented On 6 9:07AM ; [facility] Para 1 09/18/2015 Last Documented On 6 9:07AM ; [facility] History of Pap smear done 07/24/2015 04/0 09/2015 Last Documented On 6 9:46AM ; [facility] Result: normal 08/19/2015 Last Documented On 6 9:46AM ; [facility] No recent change in medical history 10/15 Last Documented On 4 9:40AM ; [facility] Vaginal delivery 05/05/2012 Last Documented On 2 9:20AM ; [facility] Baby thriving 11/27/2010 Last Documented On 1 3:12PM ; [facility] Infant is bottle-feeding 11/27/2010 Last Documented On 1 3:12PM ; [facility] No history of cervical dysplasia 010 Last Documented On 0 11:16AM ; [facility] No history of dysfunctional uterine blee ding 03/04/2010 Last Documented On 0 11:16AM ; [facility] No history of human papilloma virus infe ction 03/04/2010 Last Documented On 0 11:16AM ; [facility] No history of Polycystic Ovarian Syndrom e (PCOS) 03/04/2010 Last Documented On 0 11:16AM ; [facility] No history of urinary tract infection Last Documented On 0 11:16AM ; [facility] No history of vaginitis 03/04/2010 Last Documented On 0 11:16AM ; [facility] age 7 myrungotomy, age 21 ulcer 06/06/19 10 Last Documented On 0 8:47PM ; [facility] A breast self-exam was performed 010 Last Documented On 0 8:47PM ; [facility] A Pap smear was performed 06/06/2009 Last Documented On 0 8:47PM ; [facility] Other method: patch 06/06/2009 Last Documented On 0 8:47PM ; [facility] Taking OTC medications IBP PRN 0 Last Documented On 0 8:47PM ; [facility] Family History Includes: Family History in patient's chart Description Last Updated Family history of diabetes mellitus pt m aternal uncle 09/18/2015 Last Documented On 6 9:07AM ; [facility] Family history of malignant female breas t neoplasm pt paternal aunt 09/18/2015 Last Documented On 6 9:07AM ; [facility] Family history of malignant neoplasm of large intestine pt paternal uncle 09/18/2015 Last Documented On 6 9:07AM ; [facility] Family history of malignant neoplasm of the ovary pt paternal aunt 09/18/2015 Last Documented On 6 9:07AM ; [facility] Paternal history of malignant female sushma ast neoplasm paternal aunt 07/24/2015 Last Documented On 6 5:38PM ; [facility] Paternal history of malignant neoplasm o f the ovary aunt on paternal side 07/24/2015 Last Documented On 6 5:38PM ; [facility] Paternal uncle's history of malignant neoplasm of large intestine uncle on paternal side 07/24/2015 Last Documented On 6 5:38PM ; [facility] Family history unchanged 11/06/2013 Last Documented On 4 9:40AM ; [facility] Spouse name: kelly 05/05/2012 Last Documented On 2 9:20AM ; [facility] Family history of hypercholesterolemia d ad 05/05/2012 Last Documented On 2 9:20AM ; [facility] Family history of hypertension dad 05/05 Last Documented On 2 9:20AM ; [facility] No family history of heart disease 05/05 Last Documented On 2 9:20AM ; [facility] No family history of uterine cancer 04/16 Last Documented On 2 9:20AM ; [facility] Family history of Cancer pgm 06/06/2009 Last Documented On 0 8:47PM ; [facility] Family history of Diabetes mgf 0 Last Documented On 0 8:47PM ; [facility] Family medical history of high blood pre ssure pgm 06/06/2009 Last Documented On 0 8:47PM ; [facility] Family medical history of High Cholester ol dad 06/06/2009 Last Documented On 0 8:47PM ; [facility] Review of Systems Review of [...] Subscriber Relationship Effect joni Dates 1 - [facility] [id number] JAYCOB MARY Se Clinical Notes Includes: Signed Clinical Notes starting from 06/04/2022 No Clinical Notes Recorded
--- OUTSIDE RECORDS SUMMARY | 2024-08-22 13:27 | XMS_ITS | Clinical Summary ---
Author Organization [facility] Address [address] [place] [address] Phone Care Team Providers Care Internet Assessor Name Role Phone YUMIKO LIGHT, DAVY Jacob Primary Care Provider [phone] PIEDAD ROSA MD Unavailable [phone] Reason for Visit and Chief Complaint The Chief Complaint is: 1 month paragard check Problems Includes: Problems addressed during this encounter and other active Problems No Active Problems Plan of Treatment No Plan of Treatment Recorded Assessments Includes: Assessments from this encounter Findings - Contraceptive management - Last Documented On 09/18/2015 9:07AM ; [facility] Medical Equipment - Implanted Devices Includes: Current Devices No Medical Equipment Recorded Medications Includes: Medications discussed during this encounter and other current Medications Current Medications (continue as prescribed) Paragard Intrauterine Copper Intrauterine device 09/17 Provider: Diagnosis: Last Documented On 09/18/2015 8:43AM By NICHOLE POWELL CMA ; [facility] Past Medications on file Triveen-Duo DHA 29-1-200 & 400 MG OR MISC 05/05/2012 - 09/02/2012 Provider: CYNTHIA ESCOBAR NP-BC Diagnosis: Last Documented On 2 9:20AM By CYNTHIA KUMAR NICKI-BC ; [facility] 19 OR TABS 01/21/2010 - 01/16/2011 Provider: CYNTHIA ROWLEY-BC Diagnosis: Last Documented On 0 10:04AM By CYNTHIA KUMAR NICKI-BC ; [facility] Medications Administered Includes: Administered Medications from this encounter No Administered Medications Recorded Vital Signs Includes: Vital Signs from this encounter Vital Name 09/18/2015 08:44A 09/18/2015 08: 38A Blood Pressure Sitting (mmHg) 118/72 Height (in) 64 64 Weight (lb) 133 Body Mass Index (kg/m2) 22.8 Body Surface Area (m2) 1.6 Last Documented: On 09/18/2015 8:44AM ; [facility] On 09/18/2015 8:38AM ; [facility] Results Includes: Results discussed during [...] 09/18/2015 Last Documented On 6 9:07AM ; [facility] Sexually active 09/18/2015 Last Documented On 6 9:07AM ; [facility] Smoking status : Current everyday smoker 09/18/2015 Last Documented On 6 9:07AM ; [facility] Procedures and Surgical History Includes: Procedures from this encounter Procedures Code Diagnosis Performing Provider Service L ocation Service Date follow-up visit for annual exam Last Documented On 6 8:57AM ; [facility] Patient reassured IUD in cor rect position and she may rely on it for contraception Last Documented On 6 8:57AM ; [facility] Clinical summary provided to patient Last Documented On 6 8:57AM ; [facility] Surgical History Last Updated Surgical / procedural history myringotom y 08/19/2015 Last Documented On 6 8:38AM ; [facility] History of surgery myringotomy 0 Last Documented On 6 8:38AM ; [facility] Medical History Includes: Medical History addressed during this encounter Description Last Updated Contraception: paragard 09/18/2015 Last Documented On 6 9:07AM ; [facility] LMP: 09/10/2015 09/18/2015 Last Documented On 6 9:07AM ; [facility] Aborta 1 09/18/2015 Last Documented On 6 9:07AM ; [facility] 2 09/18/2015 Last Documented On 6 9:07AM ; [facility] Last pap smear date 07/24/2015 09/18/2015 Last Documented On 6 9:07AM ; [facility] Para 1 09/18/2015 Last Documented On 6 9:07AM ; [facility] Family History Includes: Family History addressed during this encounter Description Last Updated Family history of diabetes mellitus pt m aternal uncle 09/18/2015 Last Documented On 6 9:07AM ; [facility] Family history of malignant female breas t neoplasm pt paternal aunt 09/18/2015 Last Documented On 6 9:07AM ; [facility] Family history of malignant neoplasm of large intestine pt paternal uncle 09/18/2015 Last Documented On 6 9:07AM ; [facility] Family history of malignant neoplasm of the ovary pt paternal aunt 09/18/2015 Last Documented On 6 9:07AM ; [facility] Review of Systems Includes: Review [...] Diagnosis 1 MONTH CHECK DAVY CALDERON MD [facility] DELIVERY CLERK 09/18/19 16 8:36AM 9:06AM Contraceptive Management Insurance Includes: Active Insurance Policies Plan Name Member ID Group # Subscriber Relationship Effect joni Dates 1 - [facility] [id number] JAYCOB MARY [facility] Clinical Notes Includes: Clinical Notes from this encounter No Clinical Notes Recorded
--- OUTSIDE RECORDS SUMMARY | 2024-08-22 13:27 | XMS_ITS | Referral Summary ---
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
--- OUTSIDE RECORDS SUMMARY | 2024-08-22 13:27 | XMS_ITS ---
Care Plan - [facility] Created on: August 22, 2024 JAYCOB MARY : 1975 Sex: Female Author Organization [facility] Address [address] [place] [address] Phone Care Team Providers Care Rn Perioperative Name Role Phone YUMIKO LIGHT, DAVY Jacob Primary Care Provider [phone] SHELLEY LIGHT, PIEDAD Rosales Unavailable [phone]
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
--- OUTSIDE RECORDS SUMMARY | 2024-08-22 13:27 | XMS_ITS | Clinical Summary ---
Author Organization [facility] Address [address] [place] [address] Phone Care Team Providers Care Ager Operator Name Role Phone YUMIKO LIGHT, DAVY Jacob Primary Care Provider [phone] PIEDAD ROSA MD Unavailable [phone] Reason for Visit and Chief [...] MD Last Documented On 6 9:45AM ; [facility] Assessments Includes: Assessments from this encounter Findings - Contraceptive management: Insertion of IUD - Last Documented On 08/19/2015 9:46AM ; [facility] Medical Equipment - Implanted Devices Includes: Current Devices No Medical Equipment Recorded Medications Includes: Medications discussed during this encounter and other current Medications Current Medications (continue as prescribed) Paragard Intrauterine Copper Intrauterine device 09/17 Provider: Diagnosis: Last Documented On 09/18/2015 8:43AM By NICHOLE POWELL CMA ; [facility] Past Medications on file Triveen-Duo DHA 29-1-200 & 400 MG OR MISC 05/05/2012 - 09/02/2012 Provider: CYNTHIA AZARBC Diagnosis: Last Documented On 2 9:20AM By CYNTHIA KELLYBC ; [facility] 19 OR TABS 01/21/2010 - 01/16/2011 Provider: CYNTHIA DWYER Diagnosis: Last Documented On 0 10:04AM By [facility] ; [facility] Medications Administered Includes: Administered Medications from this encounter No Administered Medications Recorded Vital Signs Includes: Vital Signs from this encounter Vital Name 08/19/2015 09:10A 08/19/2015 09: 07A Blood Pressure Sitting (mmHg) 118/74 Height (in) 64 64 Weight (lb) 140 Body Mass Index (kg/m2) 24.0 Body Surface Area (m2) 1.7 Last Documented: On 08/19/2015 9:11AM ; [facility] On 08/19/2015 9:07AM ; [facility] Results Includes: Results discussed [...] (IUD) .Risks versus benefits discussed. Consent signed [id number] Last Documented On 6 9:30AM ; [facility] Sterile speculum inserted Last Documented On 6 9:30AM ; [facility] Cervix easily visualized , cervix swabbe d with Betadine Last Documented On 6 9:30AM ; [facility] Tenaculum applied to anterior cervix. Last Documented On 6 9:30AM ; [facility] Uterus sounded to 8 cm Last Documented On 6 9:45AM ; [facility] ParaGard anesthesia assistant introduced through cer vix to 6 cm Last Documented On 6 9:45AM ; [facility] ParaGard released and anesthesia assistant advanced to 7.5 cm Last Documented On 6 9:45AM ; [facility] Field Sales Associate removed. Last Documented On 6 9:30AM ; [facility] Tenaculum removed and pressu re applied to tenaculum sites with cotton swabs until hemostatis obtained. along with silver nitrate Last Documented On 6 9:45AM ; [facility] IUD strings trimmed to 3-4 cm. Last Documented On 6 9:30AM ; [facility] Patient tolerated procedure well Last Documented On 6 9:30AM ; [facility] Instructed to use non-hormonal, back-up method of control x 1 month Last Documented On 6 9:30AM ; [facility] Patient verbalizes understanding Last Documented On 6 9:30AM ; [facility] RTO in month for IUD check. Last Documented On 6 9:30AM ; [facility] Encouraged to call office with any IUD c oncerns Last Documented On 6 9:30AM ; [facility] Clinical summary provided to patient Last Documented On 6 9:30AM ; [facility] Surgical History Last Updated Surgical / procedural history myringotom y 08/19/2015 Last Documented On 6 9:46AM ; [facility] Medical History Includes: Medical History addressed during this encounter Description Last Updated LMP: 08/17/2015 08/19/2015 Last Documented On 6 9:46AM ; [facility] Aborta 1 08/19/2015 Last Documented On 6 9:46AM ; [facility] 2 08/19/2015 Last Documented On 6 9:46AM ; [facility] History of Pap smear done 07/24/201509/2015 Last Documented On 6 9:46AM ; [facility] Para 1 08/19/2015 Last Documented On 6 9:46AM ; [facility] Result: normal 08/19/2015 Last Documented On 6 9:46AM ; [facility] Family History Includes: Family History addressed during this encounter Description Last Updated Family history of diabetes m ellitus grandfather and uncles on maternal side 09/18/2015 Last Documented On 6 9:07AM ; [facility] Family history of malignant female breas t neoplasm Paternal aunt 09/18/2015 Last Documented On 6 9:07AM ; [facility] Family history of malignant neoplasm of the large intestine Paternal uncle 09/18/2015 Last Documented On 6 9:07AM ; [facility] Family history of malignant neoplasm of the ovary Paternal aunt 09/18/2015 Last Documented On 6 9:07AM ; [facility] Paternal history of malignant female sushma ast neoplasm paternal aunt 07/24/2015 Last Documented On 6 9:07AM ; [facility] Paternal history of malignant neoplasm o f the ovary aunt on paternal side 07/24/2015 Last Documented On 6 9:07AM ; [facility] Paternal uncle's history of malignant neoplasm of large intestine uncle on paternal side 07/24/2015 Last Documented On 6 9:07AM ; [facility] Family history unchanged 11/06/2013 Last Documented On 6 9:07AM ; [facility] Spouse name: kelly 05/05/2012 Last Documented On 6 9:07AM ; [facility] Family history of hypercholesterolemia d ad 05/05/2012 Last Documented On 6 9:07AM ; [facility] Family history of hypertension dad 05/05 Last Documented On 6 9:07AM ; [facility] No family history of heart disease 05/05 Last Documented On 6 9:07AM ; [facility] No family history of uterine cancer 04/16 Last Documented On 6 9:07AM ; [facility] Family history of Cancer pgm 06/06/2009 Last Documented On 6 9:07AM ; [facility] Family history of Diabetes mgf 0 Last Documented On 6 9:07AM ; [facility] Family medical history of high blood pre ssure pgm 06/06/2009 Last Documented On 6 9:07AM ; [facility] Family medical history of High Cholester ol dad 06/06/2009 Last Documented On 6 9:07AM ; [facility] Review of Systems Includes: Review of [...] Time Diagnosis IUD INSERTION DAVY CALDERON MD [facility] [address]AD ADVISOR 08/19/19 16 8:58AM 9:49AM Contraceptive Management: Insertion of Iud Insurance Includes: Active Insurance Policies Plan Name Member ID Group # Subscriber Relationship Effect ojni Dates 1 - [facility] [id number] JAYCOB MARY Se [facility] Clinical Notes Includes: Clinical Notes from this encounter No Clinical Notes Recorded
--- OUTSIDE RECORDS SUMMARY | 2024-08-22 13:29 | XMS_ITS | Clinical Summary ---
Author Organization [facility] Address [address] [place] [address] Phone Care Team Providers Care Bed Laborer Name Role Phone YUMIKO LIGHT, DAVY Jacob Primary Care Provider [phone] PIEDAD ROSA MD Unavailable [phone] Reason for Visit and Chief Complaint The Chief Complaint is: 1 month paragard check Problems Includes: Problems addressed during this encounter and other active Problems No Active Problems Plan of Treatment No Plan of Treatment Recorded Assessments Includes: Assessments from this encounter Findings - Contraceptive management - Last Documented On 09/18/2015 9:07AM ; [facility] Medical Equipment - Implanted Devices Includes: Current Devices No Medical Equipment Recorded Medications Includes: Medications discussed during this encounter and other current Medications Current Medications (continue as prescribed) Paragard Intrauterine Copper Intrauterine device 09/17 Provider: Diagnosis: Last Documented On 09/18/2015 8:43AM By NICHOLE POWELL CMA ; [facility] Past Medications on file Triveen-Duo DHA 29-1-200 & 400 MG OR MISC 05/05/2012 - 09/02/2012 Provider: CYNTHIA ESCOBAR NP-BC Diagnosis: Last Documented On 2 9:20AM By CYNTHIA KUMAR NICKI-BC ; [facility] 19 OR TABS 01/21/2010 - 01/16/2011 Provider: CYNTHIA ROWLEY-BC Diagnosis: Last Documented On 0 10:04AM By CYNTHIA KUMAR NICKI-BC ; [facility] Medications Administered Includes: Administered Medications from this encounter No Administered Medications Recorded Vital Signs Includes: Vital Signs from this encounter Vital Name 09/18/2015 08:44A 09/18/2015 08: 38A Blood Pressure Sitting (mmHg) 118/72 Height (in) 64 64 Weight (lb) 133 Body Mass Index (kg/m2) 22.8 Body Surface Area (m2) 1.6 Last Documented: On 09/18/2015 8:44AM ; [facility] On 09/18/2015 8:38AM ; [facility] Results Includes: Results [...] 09/18/2015 Last Documented On 6 9:07AM ; [facility] Sexually active 09/18/2015 Last Documented On 6 9:07AM ; [facility] Smoking status : Current everyday smoker 09/18/2015 Last Documented On 6 9:07AM ; [facility] Procedures and Surgical History Includes: Procedures from this encounter Procedures Code Diagnosis Performing Provider Service L ocation Service Date follow-up visit for annual exam Last Documented On 6 8:57AM ; [facility] Patient reassured IUD in cor rect position and she may rely on it for contraception Last Documented On 6 8:57AM ; [facility] Clinical summary provided to patient Last Documented On 6 8:57AM ; [facility] Surgical History Last Updated Surgical / procedural history myringotom y 08/19/2015 Last Documented On 6 8:38AM ; [facility] History of surgery myringotomy 0 Last Documented On 6 8:38AM ; [facility] Medical History Includes: Medical History addressed during this encounter Description Last Updated Contraception: paragard 09/18/2015 Last Documented On 6 9:07AM ; [facility] LMP: 09/10/2015 09/18/2015 Last Documented On 6 9:07AM ; [facility] Aborta 1 09/18/2015 Last Documented On 6 9:07AM ; [facility] 2 09/18/2015 Last Documented On 6 9:07AM ; [facility] Last pap smear date 07/24/2015 09/18/2015 Last Documented On 6 9:07AM ; [facility] Para 1 09/18/2015 Last Documented On 6 9:07AM ; [facility] Family History Includes: Family History addressed during this encounter Description Last Updated Family history of diabetes mellitus pt m aternal uncle 09/18/2015 Last Documented On 6 9:07AM ; [facility] Family history of malignant female breas t neoplasm pt paternal aunt 09/18/2015 Last Documented On 6 9:07AM ; [facility] Family history of malignant neoplasm of large intestine pt paternal uncle 09/18/2015 Last Documented On 6 9:07AM ; [facility] Family history of malignant neoplasm of the ovary pt paternal aunt 09/18/2015 Last Documented On 6 9:07AM ; [facility] Review of Systems Includes: Review [...] Diagnosis 1 MONTH CHECK DAVY CALDERON MD [facility] REFUND SPECIALIST 09/18/19 16 8:36AM 9:06AM Contraceptive Management Insurance Includes: Active Insurance Policies Plan Name Member ID Group # Subscriber Relationship Effect joni Dates 1 - [facility] [id number] J[facility]COB [facility] Clinical Notes Includes: Clinical Notes from this encounter No Clinical Notes Recorded
--- OUTSIDE RECORDS SUMMARY | 2024-08-22 13:29 | XMS_ITS | Clinical Summary ---
Author Organization [facility] Address [address] [place] [address] Phone Care Team Providers Care Probate Paralegal Name Role Phone YUMIKO LIGHT, DAVY Jacob Primary Care Provider [phone] PIEDAD ROSA MD Unavailable [phone] Reason for Visit and Chief [...] By NICHOLE POWELL CMA ; [facility] Past Medications on file Triveen-Duo DHA 29-1-200 & 400 MG OR MISC 05/05/2012 - 09/02/2012 Provider: CYNTHIA ECHOLS Diagnosis: Last Documented On 2 9:20AM By CYNTHIA KUMAR KINZA ; [facility] 19 OR TABS 01/21/2010 - 01/16/2011 Provider: CYNTHIA DWYER Diagnosis: Last Documented On 0 10:04AM By CYNTHIA KUMAR KINZA ; [facility] Medications Administered Includes: Administered [...] 09/18/2015 Last Documented On 6 2:52PM ; [facility] Family history of malignant female breas t neoplasm Paternal aunt 09/18/2015 Last Documented On 6 2:52PM ; [facility] Family history of malignant neoplasm of the large intestine Paternal uncle 09/18/2015 Last Documented On 6 2:52PM ; [facility] Family history of malignant neoplasm of the ovary Paternal aunt 09/18/2015 Last Documented On 6 2:52PM ; [facility] Paternal history of malignant female sushma ast neoplasm paternal aunt 07/24/2015 Last Documented On 6 2:52PM ; [facility] Paternal history of malignant neoplasm o f the ovary aunt on paternal side 07/24/2015 Last Documented On 6 2:52PM ; [facility] Paternal uncle's history of malignant neoplasm of large intestine uncle on paternal side 07/24/2015 Last Documented On 6 2:52PM ; [facility] Family history unchanged 11/06/2013 Last Documented On 6 2:52PM ; [facility] Spouse name: kelly 05/05/2012 Last Documented On 6 2:52PM ; [facility] Family history of hypercholesterolemia d ad 05/05/2012 Last Documented On 6 2:52PM ; [facility] Family history of hypertension dad 05/05 Last Documented On 6 2:52PM ; [facility] No family history of heart disease 05/05 Last Documented On 6 2:52PM ; [facility] No family history of uterine cancer 04/16 Last Documented On 6 2:52PM ; [facility] Family history of Cancer pgm 06/06/2009 Last Documented On 6 2:52PM ; [facility] Family history of Diabetes mgf 0 Last Documented On 6 2:52PM ; [facility] Family medical history of high blood pre ssure pgm 06/06/2009 Last Documented On 6 2:52PM ; [facility] Family medical history of High Cholester ol dad 06/06/2009 Last Documented On 6 2:52PM ; [facility] Review of Systems Includes: Review of [...] Diagnosis * PHONE CALL DAVY CALDERON MD [facility] INSPECTOR ASSEMBLY 6 2:52PM 11:59PM Insurance Includes: Active Insurance Policies Plan Name Member ID Group # Subscriber Relationship Effect joni Dates 1 - [facility] [id number] JAYCOB MARY Se Clinical Notes Includes: Clinical Notes from this encounter No Clinical Notes Recorded
--- OUTSIDE RECORDS SUMMARY | 2024-08-22 13:30 | XMS_ITS | Clinical Summary ---
Author Organization [facility] Address [address] [place] [address] Phone Care Team Providers Care Senior Quality Manager Name Role Phone YUMIKO LIGHT, DAVY Jacob Primary Care Provider [phone] PIEDAD ROSA MD Unavailable [phone] Reason for Visit and Chief [...] MD Last Documented On 6 9:45AM ; [facility] Assessments Includes: Assessments from this encounter Findings - Contraceptive management: Insertion of IUD - Last Documented On 08/19/2015 9:46AM ; [facility] Medical Equipment - Implanted Devices Includes: Current Devices No Medical Equipment Recorded Medications Includes: Medications discussed during this encounter and other current Medications Current Medications (continue as prescribed) Paragard Intrauterine Copper Intrauterine device 09/17 Provider: Diagnosis: Last Documented On 09/18/2015 8:43AM By NICHOLE POWELL CMA ; [facility] Past Medications on file Triveen-Duo DHA 29-1-200 & 400 MG OR MISC 05/05/2012 - 09/02/2012 Provider: CYNTHIA AZARBC Diagnosis: Last Documented On 2 9:20AM By CYNTHIA KELLYBC ; [facility] 19 OR TABS 01/21/2010 - 01/16/2011 Provider: CYNTHIA DWYER Diagnosis: Last Documented On 0 10:04AM By [facility] ; [facility] Medications Administered Includes: Administered Medications from this encounter No Administered Medications Recorded Vital Signs Includes: Vital Signs from this encounter Vital Name 08/19/2015 09:10A 08/19/2015 09: 07A Blood Pressure Sitting (mmHg) 118/74 Height (in) 64 64 Weight (lb) 140 Body Mass Index (kg/m2) 24.0 Body Surface Area (m2) 1.7 Last Documented: On 08/19/2015 9:11AM ; [facility] On 08/19/2015 9:07AM ; [facility] Results Includes: Results discussed [...] (IUD) .Risks versus benefits discussed. Consent signed [id number] Last Documented On 6 9:30AM ; [facility] Sterile speculum inserted Last Documented On 6 9:30AM ; [facility] Cervix easily visualized , cervix swabbe d with Betadine Last Documented On 6 9:30AM ; [facility] Tenaculum applied to anterior cervix. Last Documented On 6 9:30AM ; [facility] Uterus sounded to 8 cm Last Documented On 6 9:45AM ; [facility] ParaGard food and beverage outlets manager introduced through cer vix to 6 cm Last Documented On 6 9:45AM ; [facility] ParaGard released and food and beverage outlets manager advanced to 7.5 cm Last Documented On 6 9:45AM ; [facility] Relocation Coordinator removed. Last Documented On 6 9:30AM ; [facility] Tenaculum removed and pressu re applied to tenaculum sites with cotton swabs until hemostatis obtained. along with silver nitrate Last Documented On 6 9:45AM ; [facility] IUD strings trimmed to 3-4 cm. Last Documented On 6 9:30AM ; [facility] Patient tolerated procedure well Last Documented On 6 9:30AM ; [facility] Instructed to use non-hormonal, back-up method of control x 1 month Last Documented On 6 9:30AM ; [facility] Patient verbalizes understanding Last Documented On 6 9:30AM ; [facility] RTO in month for IUD check. Last Documented On 6 9:30AM ; [facility] Encouraged to call office with any IUD c oncerns Last Documented On 6 9:30AM ; [facility] Clinical summary provided to patient Last Documented On 6 9:30AM ; [facility] Surgical History Last Updated Surgical / procedural history myringotom y 08/19/2015 Last Documented On 6 9:46AM ; [facility] Medical History Includes: Medical History addressed during this encounter Description Last Updated LMP: 08/17/2015 08/19/2015 Last Documented On 6 9:46AM ; [facility] Aborta 1 08/19/2015 Last Documented On 6 9:46AM ; [facility] 2 08/19/2015 Last Documented On 6 9:46AM ; [facility] History of Pap smear done 07/24/201509/2015 Last Documented On 6 9:46AM ; [facility] Para 1 08/19/2015 Last Documented On 6 9:46AM ; [facility] Result: normal 08/19/2015 Last Documented On 6 9:46AM ; [facility] Family History Includes: Family History addressed during this encounter Description Last Updated Family history of diabetes m ellitus grandfather and uncles on maternal side 09/18/2015 Last Documented On 6 9:07AM ; [facility] Family history of malignant female breas t neoplasm Paternal aunt 09/18/2015 Last Documented On 6 9:07AM ; [facility] Family history of malignant neoplasm of the large intestine Paternal uncle 09/18/2015 Last Documented On 6 9:07AM ; [facility] Family history of malignant neoplasm of the ovary Paternal aunt 09/18/2015 Last Documented On 6 9:07AM ; [facility] Paternal history of malignant female sushma ast neoplasm paternal aunt 07/24/2015 Last Documented On 6 9:07AM ; [facility] Paternal history of malignant neoplasm o f the ovary aunt on paternal side 07/24/2015 Last Documented On 6 9:07AM ; [facility] Paternal uncle's history of malignant neoplasm of large intestine uncle on paternal side 07/24/2015 Last Documented On 6 9:07AM ; [facility] Family history unchanged 11/06/2013 Last Documented On 6 9:07AM ; [facility] Spouse name: kelly 05/05/2012 Last Documented On 6 9:07AM ; [facility] Family history of hypercholesterolemia d ad 05/05/2012 Last Documented On 6 9:07AM ; [facility] Family history of hypertension dad 05/05 Last Documented On 6 9:07AM ; [facility] No family history of heart disease 05/05 Last Documented On 6 9:07AM ; [facility] No family history of uterine cancer 04/16 Last Documented On 6 9:07AM ; [facility] Family history of Cancer pgm 06/06/2009 Last Documented On 6 9:07AM ; [facility] Family history of Diabetes mgf 0 Last Documented On 6 9:07AM ; [facility] Family medical history of high blood pre ssure pgm 06/06/2009 Last Documented On 6 9:07AM ; [facility] Family medical history of High Cholester ol dad 06/06/2009 Last Documented On 6 9:07AM ; [facility] Review of Systems Includes: Review of [...] Time Diagnosis IUD INSERTION DAVY CALDERON MD [facility] SAND DRIER 08/19/19 16 8:58AM 9:49AM Contraceptive Management: Insertion of Iud Insurance Includes: Active Insurance Policies Plan Name Member ID Group # Subscriber Relationship Effect joni Dates 1 - [facility] [id number] JAYCOB MARY Se lf Clinical Notes Includes: Clinical Notes from this encounter No Clinical Notes Recorded
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
--- OUTSIDE RECORDS SUMMARY | 2024-08-22 13:30 | XMS_ITS | Clinical Summary ---
Author Organization [facility] Address [address] [place] [address] Phone Care Team Providers Care Tower Attendant Name Role Phone YUMIKO LIGHT, DAVY Jacob Primary Care Provider [phone] PIEDAD ROSA MD Unavailable [phone] Reason for Visit and Chief [...] 09/18/2015 8:43AM By NICHOLE POWELL CMA ; [facility] Medications Administered Includes: Administered Medications from this [...] Time Diagnosis [Patient Encounter] DAVY CALDERON MD [facility] FLY FISHING GUIDE 5 1:20PM 11:59PM Insurance Includes: Active Insurance Policies Plan Name Member ID Group # Subscriber Relationship Effect joni Dates 1 - [facility] [id number] JAYCOB jaeger Clinical Notes Includes: Clinical Notes from this encounter No Clinical Notes Recorded
--- OUTSIDE RECORDS SUMMARY | 2024-08-22 13:30 | XMS_ITS ---
Author Organization [facility] Address [address] [place] [address] Phone Care Team Providers Care Jelly Maker Name Role Phone YUMIKO LIGHT, DAVY Jacob Primary Care Provider [phone] PIEDAD ROSA MD Unavailable [phone] Problems Includes: Active, inactive, and resolved Problems All Visits Onset Date Resolved Date Provider Condition S tatus Tobacco Use 04/02/2010 Unknown DAVY CALDERON MD Resolve d Last Documented On 12/02/2010 10:13AM ; [facility] Note: was Closed. Plan of Treatment Findings Encounter Date Declines contraception at th is time. vitamin RX sent. Pt. to call if + hpt. Agreeable to ct/ng for family planning today NUT PROCESSING SUPERVISOR EXAM with CYNTHIA KUMAR [facility] 05/05/2012 Last Documented On 2 9:20AM ; [facility] Ordered Clinical summary pro vided to patient NUT PROCESSING SUPERVISOR EXAM with CYNTHIA KUMAR [facility] 05/05/2012 Last Documented On 2 9:20AM ; [facility] Ordered follow-up visit 1 ye ar or as needed NUT PROCESSING SUPERVISOR EXAM with CYNTHIA KUMAR [facility] 01/21/2010 Last Documented On 0 10:12AM ; [facility] Instructions to patient Instructions for patient : B reast Self Exam discussed Last Documented On 6 2:56PM ; [facility] Instructions for patient : B reast Self Exam discussed Last Documented On 4 9:31AM ; [facility] Instructions for patient : B reast Self Exam discussed Last Documented On 2 9:06AM ; [facility] Instructions for patient : B reast Self Exam discussed Last Documented On 1 3:21PM ; [facility] Instructions for patient : B reast Self Exam discussed Last Documented On 0 9:51AM ; [facility] Education and Decision Aids were provided during visit for: STD screening desired and or dered (cultures only) Last Documented On 6 3:18PM ; [facility] STD screening offered and de clined Last Documented On 4 9:31AM ; [facility] Patient Education: Daily jaime cium and vitamin D Last Documented On 2 9:06AM ; [facility] Patient Education: weight be aring exercise Last Documented On 2 9:06AM ; [facility] STD screening offered and de clined Last Documented On 1 3:21PM ; [facility] New OB form given to patient SAB precautions reviewed and pnv samples given. Advised H1N1 and seasonal flu vaccine Last Documented On 0 10:57AM ; [facility] Patient Education: Daily jaime cium and vitamin D Last Documented On 0 10:03AM ; [facility] Patient Education: weight be aring exercise Last Documented On 0 10:03AM ; [facility] Smoking cessation advised Last Documented On 0 10:03AM ; [facility] Assessments Includes: Assessments for all patient encounters Findings Encounter Date Contraceptive management 1 MONTH CHECK with DAVY CALDERON MD 09/18/2015 Last Documented On 6 9:07AM ; [facility] Contraceptive management: In sertion of IUD IUD INSERTION with DAVY CALDERON MD 08/19/2015 Last Documented On 6 9:46AM ; [facility] Routine pelvic exam ANNUAL WELL WOMEN EXAM with DAVY CALDERON MD 07/24/2015 Last Documented On 6 5:38PM ; [facility] Routine pelvic exam NUT PROCESSING SUPERVISOR EXAM with DAVY CALDERON MD 11/06/2013 Last Documented On 4 9:40AM ; [facility] NORMAL FEMALE EXAM NUT PROCESSING SUPERVISOR EXAM with CYNTHIA SINCLAIRP-MICHA 05/05/2012 Last Documented On 2 9:20AM ; [facility] Alopecia PROBLEM VISIT with DAVY CALDERON MD 04/10/2012 Last Documented On 2 1:00PM ; [facility] Bloating PROBLEM VISIT with DAVY CALDERON MD 04/10/2012 Last Documented On 2 1:00PM ; [facility] Contraceptive management PROBLEM VISIT with DAVY CALDERON MD 04/10/2012 Last Documented On 2 1:00PM ; [facility] Fatigue PROBLEM VISIT with DAVY CALDERON MD 04/10/2012 Last Documented On 2 1:00PM ; [facility] Contraceptive management NUT PROCESSING SUPERVISOR EXAM with DAVY UNDERWOOD MD 02/02/2011 Last Documented On 1 3:34PM ; [facility] Routine pelvic exam NUT PROCESSING SUPERVISOR EXAM with DAVY CALDERON MD 02/02/2011 Last Documented On 1 3:34PM ; [facility] Contraceptive management RECHECK with DAVY CALDERON MD 12/29/2010 Last Documented On 1 10:35AM ; [facility] Contraceptive management: In sertion of IUD POST VISIT with DAVY CALDERON MD 11/27/2010 Last Documented On 1 3:12PM ; [facility] Normal checkup (6 - 42 wk) RETURN OB EX AM with DAVY CALDERON MD 10/08/2010 Last Documented On 1 10:15AM ; [facility] Normal checkup (6 - 42 wk) RETURN OB EX AM with DAVY CALDERON MD 10/01/2010 Last Documented On 1 10:44AM ; [facility] Normal checkup (6 - 42 wk) [Pat ient Encounter] with DAVY CALDERON MD 09/25/2010 Last Documented On 1 3:43PM ; [facility] Normal checkup (6 - 42 wk) RETURN OB EX AM with DAVY CALDERON MD 09/24/2010 Last Documented On 1 9:26AM ; [facility] Normal checkup (6 - 42 wk) RETURN OB EX AM with DAVY CALDERON MD 09/17/2010 Last Documented On 1 9:38AM ; [facility] Normal checkup (6 - 42 wk) RETU RN OB EXAM with CYNTHIA Gavin [facility]- 09/09/2010 Last Documented On 1 9:07AM ; [facility] Normal checkup (6 - 42 wk) RETURN OB EX AM with DAVY CALDERON MD 08/25/2010 Last Documented On 1 1:12PM ; [facility] Normal checkup (6 - 42 wk) RETU RN OB EXAM with CYNTHIA Gavin [facility]- 08/07/2010 Last Documented On 1 10:07AM ; [facility] Normal checkup (6 - 42 wk) RETURN OB EX AM with DAVY CALDERON MD 07/14/2010 Last Documented On 1 10:12AM ; [facility] Normal checkup (6 - 42 wk) RETU RN OB EXAM with CYNTHIA Romaine [facility]- 06/25/2010 Last Documented On 1 8:58AM ; [facility] Normal checkup (6 - 42 wk) RETURN OB EX AM with DAVY CALDERON MD 05/28/2010 Last Documented On 1 9:51AM ; [facility] Normal checkup (6 - 42 wk) RETU RN OB EXAM with CYNTHIA A [facility]- 04/30/2010 Last Documented On 0 9:56AM ; [facility] Normal checkup (6 - 42 wk) NEW OB EXAM with DAVY CALDERON MD 04/02/2010 Last Documented On 0 11:05AM ; [facility] Amenorrhea 8 weeks by lmp wi th edc of 10-16-2010 MISSED MENSES with CYNTHIA Gavin [facility]- 03/04/2010 Last Documented On 0 11:16AM ; [facility] Normal routine history and physical NUT PROCESSING SUPERVISOR EXAM wit h CYNTHIA A [facility]- 01/21/2010 Last Documented On 0 10:12AM ; [facility] Routine pelvic exam NUT PROCESSING SUPERVISOR EXAM with CYNTHIA A [facility]- 01/21/2010 Last Documented On 0 10:12AM ; [facility] Instructions Includes: Instructions for all patient encounters Instructions to patient Instructions for patient : B reast Self Exam discussed Last Documented On 6 2:56PM ; [facility] Instructions for patient : B reast Self Exam discussed Last Documented On 4 9:31AM ; [facility] Instructions for patient : B reast Self Exam discussed Last Documented On 2 9:06AM ; [facility] Instructions for patient : B reast Self Exam discussed Last Documented On 1 3:21PM ; [facility] Instructions for patient : B reast Self Exam discussed Last Documented On 0 9:51AM ; [facility] Education and Decision Aids were provided during visit for: STD screening desired and or dered (cultures only) Last Documented On 6 3:18PM ; [facility] STD screening offered and de clined Last Documented On 4 9:31AM ; [facility] Patient Education: Daily jaime cium and vitamin D Last Documented On 2 9:06AM ; [facility] Patient Education: weight be aring exercise Last Documented On 2 9:06AM ; [facility] STD screening offered and de clined Last Documented On 1 3:21PM ; [facility] New OB form given to patient SAB precautions reviewed and pnv samples given. Advised H1N1 and seasonal flu vaccine Last Documented On 0 10:57AM ; [facility] Patient Education: Daily jaime cium and vitamin D Last Documented On 0 10:03AM ; [facility] Patient Education: weight be aring exercise Last Documented On 0 10:03AM ; [facility] Smoking cessation advised Last Documented On 0 10:03AM ; [facility] Medical Equipment - Implanted Devices Includes: Current and historical Devices No Medical Equipment Recorded Medications Includes: Current and historical Medications Current Medications (continue as prescribed) Paragard Intrauterine Copper Intrauterine device 09/17 Provider: Diagnosis: Last Documented On 09/18/2015 8:43AM By NICHOLE POWELL JUNIOR ENGINEER ; [facility] Past Medications on file Triveen-Duo DHA 29-1-200 & 400 MG OR MISC 05/05/2012 - 09/02/2012 Provider: CYNTHIA ECHOLS Diagnosis: Last Documented On 2 9:20AM By CYNTHIA DWYER ; [facility] Mirena (52 MG) 20 MCG/24HR IU IUD 11/27/2010 - 012 Provider: Diagnosis: Inserted 11-27-10 Last Documented On 05/05/2012 9:09AM By REN CABRERA ; [facility] 19 OR TABS 01/21/2010 - 01/16/2011 Provider: CYNTHIA DWYER Diagnosis: Last Documented On 0 10:04AM By CYNTHIA DWYER ; [facility] Ortho Evra 150-35 MCG/24HR TD PTWK 06/06/2009 - 2009 Provider: Diagnosis: Last Documented On 01/21/2010 9:59AM By REN CABRERA ; [facility] Medications Administered Includes: Administered Medications [...] 09/18/2015 Last Documented On 6 9:07AM ; [facility] Sexually active 09/18/2015 Last Documented On 6 9:07AM ; [facility] Smoking status : Current everyday smoker 09/18/2015 Last Documented On 6 9:07AM ; [facility] In monogamous relationship 07/24/2015 Last Documented On 6 5:38PM ; [facility] Cigarette smoking 1 pack a week 07/24/19 16 Last Documented On 6 5:38PM ; [facility] Social history unchanged 11/06/2013 Last Documented On 4 9:40AM ; [facility] Alcohol use rarely 05/05/2012 Last Documented On 2 9:20AM ; [facility] Not using drugs 05/05/2012 Last Documented On 2 9:20AM ; [facility] Sexually active with 1 partners in the l ast year 05/05/2012 Last Documented On 2 9:20AM ; [facility] Non-smoker 04/10/2012 Last Documented On 2 1:00PM ; [facility] Not sexually active 1 Last Documented On 1 3:12PM ; [facility] Tobacco use 04/02/2010 Last Documented On 0 11:05AM ; [facility] Daily cola consumption was one cans per day 06/06/2009 Last Documented On 0 8:47PM ; [facility] Alcohol 06/06/2009 Last Documented On 0 8:47PM ; [facility] Beer consumption 2 mo 06/06/2009 Last Documented On 0 8:47PM ; [facility] Caffeine use 06/06/2009 Last Documented On 0 8:47PM ; [facility] Currently 06/06/2009 Last Documented On 0 8:47PM ; [facility] Educational level: grade 06/06/2009 Last Documented On 0 8:47PM ; [facility] In grade 13-16 (college) 06/06/2009 Last Documented On 0 8:47PM ; [facility] Marital history 06/06/2009 Last Documented On 0 8:47PM ; [facility] Smoking only on weekends 06/06/2009 Last Documented On 0 8:47PM ; [facility] Procedures and Surgical History Surgical History Last Updated Surgical / procedural history myringotom y 08/19/2015 Last Documented On 6 9:46AM ; [facility] History of surgery 04/02/2010 Last Documented On 0 11:05AM ; [facility] Medical History Includes: Medical History in patient's chart Description Last Updated Contraception: paragard 09/18/2015 Last Documented On 6 9:07AM ; [facility] LMP: 09/10/2015 09/18/2015 Last Documented On 6 9:07AM ; [facility] Aborta 1 09/18/2015 Last Documented On 6 9:07AM ; [facility] 2 09/18/2015 Last Documented On 6 9:07AM ; [facility] Last pap smear date 07/24/2015 09/18/2015 Last Documented On 6 9:07AM ; [facility] Para 1 09/18/2015 Last Documented On 6 9:07AM ; [facility] History of Pap smear done 07/24/2015 04/0 09/2015 Last Documented On 6 9:46AM ; [facility] Result: normal 08/19/2015 Last Documented On 6 9:46AM ; [facility] No recent change in medical history 10/15 Last Documented On 4 9:40AM ; [facility] Vaginal delivery 05/05/2012 Last Documented On 2 9:20AM ; [facility] Baby thriving 11/27/2010 Last Documented On 1 3:12PM ; [facility] Infant is bottle-feeding 11/27/2010 Last Documented On 1 3:12PM ; [facility] No history of cervical dysplasia 010 Last Documented On 0 11:16AM ; [facility] No history of dysfunctional uterine blee ding 03/04/2010 Last Documented On 0 11:16AM ; [facility] No history of human papilloma virus infe ction 03/04/2010 Last Documented On 0 11:16AM ; [facility] No history of Polycystic Ovarian Syndrom e (PCOS) 03/04/2010 Last Documented On 0 11:16AM ; [facility] No history of urinary tract infection Last Documented On 0 11:16AM ; [facility] No history of vaginitis 03/04/2010 Last Documented On 0 11:16AM ; [facility] age 7 myrungotomy, age 21 ulcer 06/06/19 10 Last Documented On 0 8:47PM ; [facility] A breast self-exam was performed 010 Last Documented On 0 8:47PM ; [facility] A Pap smear was performed 06/06/2009 Last Documented On 0 8:47PM ; [facility] Other method: patch 06/06/2009 Last Documented On 0 8:47PM ; [facility] Taking OTC medications IBP PRN 0 Last Documented On 0 8:47PM ; [facility] Family History Includes: Family History in patient's chart Description Last Updated Family history of diabetes mellitus pt m aternal uncle 09/18/2015 Last Documented On 6 9:07AM ; [facility] Family history of malignant female breas t neoplasm pt paternal aunt 09/18/2015 Last Documented On 6 9:07AM ; [facility] Family history of malignant neoplasm of large intestine pt paternal uncle 09/18/2015 Last Documented On 6 9:07AM ; [facility] Family history of malignant neoplasm of the ovary pt paternal aunt 09/18/2015 Last Documented On 6 9:07AM ; [facility] Paternal history of malignant female sushma ast neoplasm paternal aunt 07/24/2015 Last Documented On 6 5:38PM ; [facility] Paternal history of malignant neoplasm o f the ovary aunt on paternal side 07/24/2015 Last Documented On 6 5:38PM ; [facility] Paternal uncle's history of malignant neoplasm of large intestine uncle on paternal side 07/24/2015 Last Documented On 6 5:38PM ; [facility] Family history unchanged 11/06/2013 Last Documented On 4 9:40AM ; [facility] Spouse name: kelly 05/05/2012 Last Documented On 2 9:20AM ; [facility] Family history of hypercholesterolemia d ad 05/05/2012 Last Documented On 2 9:20AM ; [facility] Family history of hypertension dad 05/05 Last Documented On 2 9:20AM ; [facility] No family history of heart disease 05/05 Last Documented On 2 9:20AM ; [facility] No family history of uterine cancer 04/16 Last Documented On 2 9:20AM ; [facility] Family history of Cancer pgm 06/06/2009 Last Documented On 0 8:47PM ; [facility] Family history of Diabetes mgf 0 Last Documented On 0 8:47PM ; [facility] Family medical history of high blood pre ssure pgm 06/06/2009 Last Documented On 0 8:47PM ; [facility] Family medical history of High Cholester ol dad 06/06/2009 Last Documented On 0 8:47PM ; [facility] Review of Systems Review of Systems not [...] Subscriber Relationship Effect joni Dates 1 - [facility] [id number] JAYCOB MARY Se Clinical Notes Includes: Signed Clinical Notes starting from 06/04/2022 No Clinical Notes Recorded
--- OUTSIDE RECORDS SUMMARY | 2024-08-22 13:30 | XMS_ITS ---
Care Plan - [facility] Created on: August 22, 2024 JAYCOB MARY : 1975 Sex: Female Author Organization [facility] Address [address] [place] [address] Phone Care Team Providers Care Pens And Pencils Dipper Name Role Phone YUMIKO LIGHT, DAVY Jacob Primary Care Provider [phone] SHELLEY LIGHT, PIEDAD Rosales Unavailable [phone]
== END 2024-08-22 13:28 | disposition home or self-care (01) ==
PROVIDERS: Emergency Provider Nurse Practitioner Family; Referring Provider Emergency Medicine
DX: K59.00 Constipation, unspecified (principal); F17.210 Nicotine dependence, cigarettes, uncomplicated
CPT/HCPCS: 74018; 81003; 99213; G0463